=== PATIENT | female | born 1970 | race Caucasian/White ===

== ENCOUNTER 2022-08-11 10:47 | Inpatient (IN) | payer MEDICAID ==
[~2022-08-11] VITALS: Ht 160 cm; Wt 100.9 kg
[2022-08-11] MEDS ORDERED: ACETAMINOPHEN 325MG TABLET PO STA (11:04)
[2022-08-11 12:05] LABS: HEMATOCRIT. 33.6 % (36.0-48.0); HEMOGLOBIN. 11.7 g/dL (12.0-16.0); MEAN CORPUSCULAR HEMOGLOBIN 34.8 pg (28.0-32.0); MEAN CORPUSCULAR VOLUME 100.1 fL (81.0-99.0); MEAN PLATELET VOLUME 8.4 fl (7.4-10.4); PLATELET 147 x1000/uL (130-400); RED BLOOD CELL COUNT 3.35 mill/uL (4.2-5.4); RED CELL DISTRIBUTION WIDTH 14.5 % (11.6-14.6)
[2022-08-11 12:13] LABS: CHLORIDE 94 mEq/L (98-107)
[2022-08-11 12:14] LABS: INR 1.3; PROTHROMBIN TIME 13.5 sec (9.6-11.0)
[2022-08-11] MEDS ORDERED: POTASSIUM CHLORIDE 20MEQ TABLET SR PO NR (12:30)
[2022-08-11] MEDS ORDERED: VANCOMYCIN 1G PREMIX 200 ML IV SCH (12:30)
[2022-08-11] MEDS ORDERED: SODIUM CHLORIDE 0.9% 1000ML BAG (SEPSIS BOLUS) IV ONE (12:30)
[2022-08-11] MEDS ORDERED: PIPERACILLIN/TAZOBACTAM 3.375GM/50ML PREMIX IV ONE (12:30)
[2022-08-11] MEDS ORDERED: PIPERACILLIN/TAZ 3.375G PREMIX 50 ML IV NR (12:45)
[2022-08-11] MEDS ORDERED: SODIUM CHLORIDE 0.9% 2,190 ML IV SCH (12:45)
[2022-08-11 13:35] LABS: PLATELET ESTIMATE NORMAL
[2022-08-11] MEDS ORDERED: MAGNESIUM/ALUMINUM HYDROXIDE/SIMETHICONE 30ML UDC PO PRN (16:00)
[2022-08-11] MEDS ORDERED: ONDANSETRON HCL 4MG/2ML INJ IV PRN (16:00)
[2022-08-11] MEDS ORDERED: DOCUSATE SODIUM 100MG CAPSULE PO PRN (16:00)
[2022-08-11] MEDS ORDERED: IPRATROPIUM/ALBUTEROL 0.5-3(2.5)MG/3ML NEB NEB PRN (16:00)
[2022-08-11] MEDS ORDERED: CLONIDINE 0.1MG TABLET PO PRN (16:00)
[2022-08-11] MEDS ORDERED: ACETAMINOPHEN 325MG TABLET PO PRN (16:00)
[2022-08-11] MEDS ORDERED: GUAIFENESIN 200MG/10ML SUGAR FREE UDC PO PRN (16:00)
[2022-08-11 16:03] LABS: CLARITY URINE CLEAR (CLEAR); COLOR URINE YELLOW (YELLOW); KETONES URINE 1+ (NEGATIVE); LEUKOCYTE ESTERASE URINE TRACE (NEGATIVE); NITRITE URINE NEGATIVE (NEGATIVE); OCCULT BLOOD URINE NEGATIVE (NEGATIVE); PH URINE 6.5 (4.5-8.0); PROTEIN URINE TRACE (NEGATIVE); SPECIFIC GRAVITY URINE 1.012 (1.005-1.030)
[2022-08-11] MEDS ORDERED: DEXTROSE 50% WATER 50ML SYRINGE IV PRN (16:30)
[2022-08-11] MEDS ORDERED: NALOXONE HCL 0.4MG/ML VIAL IV PRN (16:30)
[2022-08-11 16:34] LABS: *AMPHETAMINES SCREEN URINE PRESUMTIVE POSITIVE (NEGATIVE); *BARBITURATES SCREEN URINE NEGATIVE (NEGATIVE); *BENZODIAZEPINES SCREEN URINE NEGATIVE (NEGATIVE); *COCAINE SCREEN URINE NEGATIVE (NEGATIVE); CANNABINOID URINE SCREEN NEGATIVE (NEGATIVE); METHADONE URINE SCREEN NEGATIVE (NEGATIVE); OPIATES URINE SCREEN NEGATIVE (NEGATIVE); PHENCYCLIDINE URINE SCREEN NEGATIVE (NEGATIVE)
[2022-08-11 19:49] LABS: CREATINE KINASE 214 IU/L (26-192); CREATINE KINASE MB FRACTION < 1.0 ng/mL (0.5-3.6)
[2022-08-11] MEDS: IPRATROPIUM/ALBUTEROL 0.5-3(2.5)MG/3ML NEB NEB SCH (20:11)
[2022-08-11 20:47] VITALS: BP 113/70
[2022-08-11] MEDS ORDERED: ENOXAPARIN 40MG/0.4ML SYR SUBCUT SCH (21:00)
[2022-08-11] MEDS: INSULIN LISPRO 100 UNITS/ML SUBCUT SCH (21:00)
[2022-08-11] MEDS: BLOOD SUGAR DIAGNOSTIC STRIP TEST SCH (21:00)
[2022-08-11 22:00] VITALS: BP 113/70
[2022-08-11] MEDS: FAMOTIDINE 20MG/2ML VIAL IV SCH (22:46)
[2022-08-11] MEDS: PIPERACILLIN/TAZOBACTAM 3.375 G in DEXTROSE 5% WATER 50 ML IV SCH (22:46)
[2022-08-11] MEDS: ACETAMINOPHEN 325MG TABLET PO PRN (23:01)
[2022-08-12] VITALS: BP 122/65
[2022-08-12 01:31] LABS: CREATINE KINASE 183 IU/L (26-192); CREATINE KINASE MB FRACTION < 1.0 ng/mL (0.5-3.6)
[2022-08-12] MEDS: IPRATROPIUM/ALBUTEROL 0.5-3(2.5)MG/3ML NEB NEB SCH ×4 (02:10→20:26)
[2022-08-12] MEDS: VANCOMYCIN 1G PREMIX 200 ML IV SCH ×2 (02:55→14:00)
[2022-08-12 04:00] VITALS: BP 132/71
[2022-08-12 06:30] LABS: BASOPHILS % 0.3 % (0.0-2.0); EOSINOPHILS % 1.1 % (0.0-5.0); HEMATOCRIT. 31.7 % (36.0-48.0); MEAN CORPUSCULAR HEMOGLOBIN 35.4 pg (28.0-32.0); MEAN CORPUSCULAR VOLUME 101.5 fL (81.0-99.0); MEAN PLATELET VOLUME 8.5 fl (7.4-10.4); MONOCYTES % 11.7 % (2.0-8.0); NEUTROPHILS % 59.9 % (40.0-76.0); PLATELET 112 x1000/uL (130-400); RED BLOOD CELL COUNT 3.12 mill/uL (4.2-5.4); RED CELL DISTRIBUTION WIDTH 14.3 % (11.6-14.6)
[2022-08-12] MEDS: PIPERACILLIN/TAZOBACTAM 3.375 G in DEXTROSE 5% WATER 50 ML IV SCH ×3 (06:35→23:06)
[2022-08-12] MEDS: BLOOD SUGAR DIAGNOSTIC STRIP TEST SCH ×4 (06:40→21:19)
[2022-08-12] MEDS: INSULIN LISPRO 100 UNITS/ML SUBCUT SCH ×4 (06:40→21:34)
[2022-08-12 07:16] LABS: CREATINE KINASE 156 IU/L (26-192); CREATINE KINASE MB FRACTION < 1.0 ng/mL (0.5-3.6)
[2022-08-12 07:34] LABS: CHLORIDE 104 mEq/L (98-107)
[2022-08-12 07:55] LABS: HDL CHOLESTEROL 41 mg/dL (40-59); LDL CHOLESTEROL 93 mg/dL (5-100); T4 FREE 1.26 ng/dL (0.76-1.46)
[2022-08-12 08:00] VITALS: BP 161/99
[2022-08-12] MEDS ORDERED: POTASSIUM CHLORIDE 20MEQ TABLET SR PO NR (10:30)
[2022-08-12] MEDS: ACETAMINOPHEN 325MG TABLET PO PRN ×2 (10:55→17:12)
[2022-08-12] MEDS: FAMOTIDINE 20MG/2ML VIAL IV SCH ×2 (10:55→21:32)
[2022-08-12] MEDS: AMLODIPINE 5MG TABLET PO SCH (10:55)
[2022-08-12 12:00] VITALS: BP 159/77
[2022-08-12] MEDS ORDERED: IOHEXOL-350 100 ML BOTTLE ONE (12:02)
[2022-08-12] MEDS: SODIUM CHLORIDE 0.9% 1,000 ML IV SCH ×2 (14:02→21:35)
[2022-08-12] MEDS: KCL 20MEQ/100ML PREMIX 100 ML IV SCH ×2 (14:03→14:05)
[2022-08-12 16:00] VITALS: BP 149/47
[2022-08-12] MEDS: VANCOMYCIN 1,000 MG in DEXT 5% WATER 250 ML IV SCH (17:11)
[2022-08-12] MEDS ORDERED: ENOXAPARIN 30MG/0.3ML SYR SUBCUT SCH (18:00)
[2022-08-12] MEDS ORDERED: LORAZEPAM 2MG/ML CPJ IV PRN (18:15)
[2022-08-12 20:00] VITALS: BP 139/73
[2022-08-12] MEDS: HYDRALAZINE HCL 25MG TABLET PO SCH (21:33)
[2022-08-13] VITALS: BP 137/68
[2022-08-13] MEDS: HYDROCODONE/ACETAMINOPHEN 5/325MG TABLET PO PRN (00:12)
[2022-08-13] MEDS: IPRATROPIUM/ALBUTEROL 0.5-3(2.5)MG/3ML NEB NEB SCH ×4 (00:52→20:48)
[2022-08-13 04:00] VITALS: BP 137/69
[2022-08-13] MEDS: ACETAMINOPHEN 325MG TABLET PO PRN ×2 (04:15→16:38)
[2022-08-13] MEDS: VANCOMYCIN 1,000 MG in DEXT 5% WATER 250 ML IV SCH (06:00)
[2022-08-13] MEDS: BLOOD SUGAR DIAGNOSTIC STRIP TEST SCH ×4 (06:06→21:00)
[2022-08-13 07:06] LABS: HEMATOCRIT 33.7 % (36.0-48.0); HEMOGLOBIN 11.6 g/dL (12.0-16.0); MEAN CORPUSCULAR HEMOGLOBIN 34.9 pg (28.0-32.0); MEAN CORPUSCULAR VOLUME 101.5 fL (81.0-99.0); PLATELET 123 x1000/uL (130-400); RED BLOOD CELL COUNT 3.32 mill/uL (4.2-5.4); RED CELL DISTRIBUTION WIDTH 14.7 % (11.6-14.6)
[2022-08-13 07:08] LABS: CHLORIDE 106 mEq/L (98-107)
[2022-08-13 07:16] LABS: PHOSPHORUS 2.9 mg/dL (2.5-4.9)
[2022-08-13] MEDS: INSULIN LISPRO 100 UNITS/ML SUBCUT SCH ×4 (07:20→21:00)
[2022-08-13] MEDS: SODIUM CHLORIDE 0.9% 1,000 ML IV SCH ×2 (07:30→16:39)
[2022-08-13] MEDS: FAMOTIDINE 20MG/2ML VIAL IV SCH ×2 (08:47→22:53)
[2022-08-13] MEDS: AMLODIPINE 5MG TABLET PO SCH (08:47)
[2022-08-13] MEDS: PIPERACILLIN/TAZOBACTAM 3.375 G in DEXTROSE 5% WATER 50 ML IV SCH ×3 (08:47→22:53)
[2022-08-13] MEDS: HYDRALAZINE HCL 25MG TABLET PO SCH ×2 (08:48→21:00)
[2022-08-13] MEDS ORDERED: POTASSIUM CHLORIDE 20MEQ TABLET SR PO NR (09:15)
[2022-08-13] MEDS ORDERED: KCL 20MEQ/100ML PREMIX 100 ML IV SCH (10:00)
[2022-08-13] MEDS ORDERED: IOHEXOL-300 100 ML BOTTLE ONE (11:24)
[2022-08-13] MEDS: POTASSIUM CHLORIDE 20MEQ/PACKET PO SCH ×2 (13:21→16:39)
[2022-08-13] MEDS: NYSTATIN POWDER 15GM TOP SCH ×2 (13:34→16:38)
[2022-08-13] MEDS ORDERED: MAGNESIUM 4 G PREMIX 100 ML IV NR (15:30)
[2022-08-13] MEDS ORDERED: VANCOMYCIN 1G PREMIX 200 ML IV SCH (18:00)
[2022-08-13 20:00] VITALS: BP 128/86
[2022-08-13] MEDS: CARVEDILOL 3.125 MG TABLET PO SCH (21:00)
[2022-08-13 21:38] LABS: TOTAL IRON BINDING CAPACITY 271 ug/dL (250-450)
[2022-08-13 22:21] LABS: FERRITIN 190 ng/mL (10-291)
[2022-08-13 22:33] LABS: HEPATITIS B SURFACE ANTIGEN NEGATIVE
[2022-08-13 22:35] LABS: VITAMIN B12 SERUM 870 pg/mL (211-911)
[2022-08-14] VITALS: BP 132/84
[2022-08-14] MEDS: IPRATROPIUM/ALBUTEROL 0.5-3(2.5)MG/3ML NEB NEB SCH ×4 (02:13→20:56)
[2022-08-14] MEDS: SODIUM CHLORIDE 0.9% 1,000 ML IV SCH ×3 (02:37→23:30)
[2022-08-14] MEDS: ACETAMINOPHEN 325MG TABLET PO PRN ×3 (02:38→19:56)
[2022-08-14 04:00] VITALS: BP 126/82
[2022-08-14] MEDS: PIPERACILLIN/TAZOBACTAM 3.375 G in DEXTROSE 5% WATER 50 ML IV SCH ×3 (05:21→21:44)
[2022-08-14] MEDS: BLOOD SUGAR DIAGNOSTIC STRIP TEST SCH ×4 (06:07→21:45)
[2022-08-14] MEDS: INSULIN LISPRO 100 UNITS/ML SUBCUT SCH ×4 (07:20→21:00)
[2022-08-14 08:00] VITALS: BP 148/88
[2022-08-14 08:43] LABS: EOSINOPHILS % 5.8 % (0.0-5.0); HEMATOCRIT. 34.9 % (36.0-48.0); HEMOGLOBIN. 12.1 g/dL (12.0-16.0); LYMPHOCYTES % 33.3 % (20.0-50.0); MEAN CORPUSCULAR HEMOGLOBIN 35.6 pg (28.0-32.0); MONOCYTES % 13.7 % (2.0-8.0); NEUTROPHILS % 46.2 % (40.0-76.0); RED BLOOD CELL COUNT 3.39 mill/uL (4.2-5.4)
[2022-08-14] MEDS ORDERED: LOSARTAN POTASSIUM 50 MG TABLET PO SCH (09:00)
[2022-08-14 09:10] LABS: CHLORIDE 106 mEq/L (98-107)
[2022-08-14] MEDS: CARVEDILOL 3.125 MG TABLET PO SCH ×2 (09:52→21:45)
[2022-08-14] MEDS: NYSTATIN POWDER 15GM TOP SCH ×3 (09:53→17:00)
[2022-08-14] MEDS: FAMOTIDINE 20MG TABLET PO SCH ×2 (09:53→21:45)
[2022-08-14] MEDS ORDERED: KETOROLAC 15MG/ML VIAL IV PRN (10:00)
[2022-08-14 12:00] VITALS: BP 127/74
[2022-08-14 12:11] LABS: MEAN PLATELET VOLUME 9.7 fl (7.4-10.4); PLATELET 142 x1000/uL (130-400)
[2022-08-14] MEDS ORDERED: AMLO5TAB88 PO (12:34)
[2022-08-14] MEDS ORDERED: COR3 PO (12:34)
[2022-08-14] MEDS ORDERED: LOSA50TA3 PO (12:34)
[2022-08-14] MEDS ORDERED: TOPUD PO (12:34)
[2022-08-14 16:00] VITALS: BP 150/91
[2022-08-14 20:00] VITALS: BP 133/72
[2022-08-14] MEDS ORDERED: VITAMINS A AND D OINT TUBE TOP PRN (21:00)
[2022-08-14] MEDS: AMLODIPINE 5MG TABLET PO SCH (21:45)
[2022-08-15] VITALS (8 sets, daily range): BP systolic 110–148; BP diastolic 59–84
[2022-08-15] MEDS: IPRATROPIUM/ALBUTEROL 0.5-3(2.5)MG/3ML NEB NEB SCH ×4 (01:39→20:06)
[2022-08-15] MEDS: PIPERACILLIN/TAZOBACTAM 3.375 G in DEXTROSE 5% WATER 50 ML IV SCH ×3 (06:32→22:12)
[2022-08-15] MEDS: BLOOD SUGAR DIAGNOSTIC STRIP TEST SCH ×4 (06:55→21:02)
[2022-08-15] MEDS: INSULIN LISPRO 100 UNITS/ML SUBCUT SCH ×4 (07:20→21:09)
[2022-08-15 07:25] LABS: EOSINOPHILS % 6.7 % (0.0-5.0); HEMATOCRIT. 33.7 % (36.0-48.0); HEMOGLOBIN. 11.7 g/dL (12.0-16.0); LYMPHOCYTES % 41.6 % (20.0-50.0); MEAN CORPUSCULAR VOLUME 101.3 fL (81.0-99.0); MEAN PLATELET VOLUME 8.7 fl (7.4-10.4); MONOCYTES % 12.9 % (2.0-8.0); NEUTROPHILS % 37.8 % (40.0-76.0); PLATELET 139 x1000/uL (130-400); RED BLOOD CELL COUNT 3.33 mill/uL (4.2-5.4); RED CELL DISTRIBUTION WIDTH 14.6 % (11.6-14.6)
[2022-08-15 07:28] LABS: CHLORIDE 108 mEq/L (98-107)
[2022-08-15] MEDS: LOSARTAN POTASSIUM 50 MG TABLET PO SCH (08:52)
[2022-08-15] MEDS: FAMOTIDINE 20MG TABLET PO SCH ×2 (08:52→21:02)
[2022-08-15] MEDS: NYSTATIN POWDER 15GM TOP SCH ×3 (09:00→17:00)
[2022-08-15] MEDS: CARVEDILOL 3.125 MG TABLET PO SCH ×2 (09:13→21:01)
[2022-08-15] MEDS: POTASSIUM CHLORIDE 20MEQ TABLET SR PO SCH ×2 (09:23→17:00)
[2022-08-15] MEDS: HYDROCODONE/ACETAMINOPHEN 5/325MG TABLET PO PRN ×2 (09:24→18:49)
[2022-08-15] MEDS: SODIUM CHLORIDE 0.9% 1,000 ML IV SCH ×2 (09:30→22:12)
[2022-08-15] MEDS: ACETAMINOPHEN 325MG TABLET PO PRN (13:13)
[2022-08-15] MEDS: AMLODIPINE 5MG TABLET PO SCH (22:14)
[2022-08-16] VITALS: BP 109/56
[2022-08-16] MEDS: IPRATROPIUM/ALBUTEROL 0.5-3(2.5)MG/3ML NEB NEB SCH ×2 (01:34→08:50)
[2022-08-16 05:22] VITALS: BP 123/70
[2022-08-16] MEDS: PIPERACILLIN/TAZOBACTAM 3.375 G in DEXTROSE 5% WATER 50 ML IV SCH (05:24)
[2022-08-16] MEDS: BLOOD SUGAR DIAGNOSTIC STRIP TEST SCH (06:12)
[2022-08-16 06:47] LABS: EOSINOPHILS % 7.3 % (0.0-5.0); HEMATOCRIT. 32.1 % (36.0-48.0); HEMOGLOBIN. 11.1 g/dL (12.0-16.0); LYMPHOCYTES % 43.8 % (20.0-50.0); MEAN CORPUSCULAR HEMOGLOBIN 35.3 pg (28.0-32.0); MEAN CORPUSCULAR VOLUME 101.8 fL (81.0-99.0); MEAN PLATELET VOLUME 8.8 fl (7.4-10.4); MONOCYTES % 13.1 % (2.0-8.0); NEUTROPHILS % 34.8 % (40.0-76.0); PLATELET 131 x1000/uL (130-400); RED BLOOD CELL COUNT 3.15 mill/uL (4.2-5.4); RED CELL DISTRIBUTION WIDTH 14.8 % (11.6-14.6)
[2022-08-16] MEDS: INSULIN LISPRO 100 UNITS/ML SUBCUT SCH (06:50)
[2022-08-16 08:00] VITALS: BP 135/85
[2022-08-16 08:13] LABS: CHLORIDE 109 mEq/L (98-107)
[2022-08-16] MEDS: FAMOTIDINE 20MG TABLET PO SCH (08:37)
[2022-08-16] MEDS: CARVEDILOL 3.125 MG TABLET PO SCH (08:39)
[2022-08-16] MEDS: LOSARTAN POTASSIUM 50 MG TABLET PO SCH (08:39)
[2022-08-16 08:40] VITALS: BP 135/85
[2022-08-16] MEDS: HYDROCODONE/ACETAMINOPHEN 5/325MG TABLET PO PRN (08:40)
== END 2022-08-16 10:00 | disposition home or self-care (01) | DRG 720 ==
LOC: ER 10:47 → 3WST 14:11 → EDBEDREQ 14:17 → EDBEDREQTM 14:17 → SUPCPDRO 16:35
PROVIDERS: ADMIT Internal Medicine; ATTEND Internal Medicine
DX: A41.89 Other specified sepsis (principal); I67.1 Cerebral aneurysm, nonruptured; E87.20 Acidosis, unspecified; E44.0 Moderate protein-calorie malnutrition; E11.40 Type 2 diabetes mellitus with diabetic neuropathy, unspecified; E87.1 Hypo-osmolality and hyponatremia; D53.9 Nutritional anemia, unspecified; R65.20 Severe sepsis without septic shock; B97.89 Other viral agents as the cause of diseases classified elsewhere; E11.65 Type 2 diabetes mellitus with hyperglycemia; K42.9 Umbilical hernia without obstruction or gangrene; Z20.822 Contact with and (suspected) exposure to COVID-19; E87.6 Hypokalemia; R16.1 Splenomegaly, not elsewhere classified; K70.30 Alcoholic cirrhosis of liver without ascites; E66.9 Obesity, unspecified; F15.10 Other stimulant abuse, uncomplicated; L85.3 Xerosis cutis; I10 Essential (primary) hypertension; Z59.01 Sheltered homelessness; Z68.39 Body mass index [BMI] 39.0-39.9, adult; Z79.899 Other long term (current) drug therapy
CPT/HCPCS: 36415; 70496; 71045; 73130; 74177; 76700; 80048; 80053; 80061; 80076; 80202; 80305; 81003; 82248; 82550; 82553; 82607; 82728; 82746; 82962; 83036; 83540; 83550; 83605; 83735; 84100; 84145; 84439; 84443; 84484; 85025; 85027; 85044; 86705; 86709; 86803; 87340; 87426; 87804; 93005; 93970; 94640; 97162; 97166; 97535; 99291; C9803; J1650; J1815; J2060; J2543; J3370; J3475; J3480; J3490; J7030; J7060; Q9967

== ENCOUNTER 2023-03-04 18:35 | Emergency (ER) | payer MEDICAID ==
[~2023-03-04] VITALS: Ht 160 cm; Wt 82.0 kg
[~2023-03-04 18:35] MED LIST: AMLO5TAB88 PO; COR3 PO; LOSA-413 PO; TOPUD PO
[2023-03-04 18:46] VITALS: BP 162/98; PULSE 88; RESP 18; TEMP 98.7; O2SAT 100
[2023-03-04] MEDS ORDERED: METHOCARBAMOL 500MG TABLET PO ONE (20:00)
[2023-03-04] MEDS ORDERED: ACETAMINOPHEN 325MG TABLET PO ONE (20:00)
[2023-03-04] MEDS ORDERED: IBUPROFEN 600MG TABLET PO ONE (20:00)
[2023-03-04] MEDS ORDERED: IBUP-2028 MT (21:43)
[2023-03-06] MEDS ORDERED: NAPR-681 PO (00:06)
[2023-03-06] MEDS ORDERED: NITR100C MT (00:06)
[2023-03-06] MEDS ORDERED: LISI-186 MT (00:06)
[2023-03-06] MEDS ORDERED: METF-414 PO (00:06)
[2023-03-06] MEDS ORDERED: POTA10CA43 PO (00:07)
== END 2023-03-04 22:16 | disposition home or self-care (01) ==
LOC: ER 18:35
DX: M79.651 Pain in right thigh (principal); E11.9 Type 2 diabetes mellitus without complications; I10 Essential (primary) hypertension; Z98.890 Other specified postprocedural states; W18.39XA Other fall on same level, initial encounter; Y93.89 Activity, other specified; Y92.89 Other specified places as the place of occurrence of the external cause; Y99.8 Other external cause status
CPT/HCPCS: 73502; 73552; 99284

== ENCOUNTER 2024-01-16 22:34 | Inpatient (IN) | payer MEDICAID ==
[~2024-01-16] VITALS: Ht 154.9 cm; Wt 76.7 kg
[~2024-01-16 22:34] MED LIST changes: +ERGO1250 PO; +FAMO20TA8 PO; +GABA-290 PO; +IBUP-2028 MT; -LOSA-413 PO; +LOSA50TA41 PO; +METF-414 PO; +NAPR-681 PO; +NITR100C MT; +POTA10CA83 PO; +SERT25TA74 PO
[2024-01-16 22:43] VITALS: O2SAT 98
[2024-01-16] MEDS ORDERED: ONDANSETRON 4MG ODT PO ONE (23:15)
[2024-01-16] MEDS ORDERED: MORPHINE SULFATE 4 MG/ML INJ (FOR IV/IM USE) IM ONE (23:15)
[2024-01-16 23:23] LABS: BASOPHILS % 0.2 % (0.0-2.0); EOSINOPHILS % 0.3 % (0.0-5.0); HEMATOCRIT. 24.2 % (36.0-48.0); HEMOGLOBIN. 8.3 g/dL (12.0-16.0); LYMPHOCYTES % 8.4 % (20.0-50.0); MEAN CORPUSCULAR HEMOGLOBIN 34.3 pg (28.0-32.0); MEAN CORPUSCULAR HGB CONC 34.5 g/dL (31.0-37.0); MEAN CORPUSCULAR VOLUME 99.4 fL (81.0-99.0); MEAN PLATELET VOLUME 6.9 fl (7.4-10.4); MONOCYTES % 6.1 % (2.0-8.0); PLATELET 232 x1000/uL (130-400); RED BLOOD CELL COUNT 2.43 mill/uL (4.2-5.4); RED CELL DISTRIBUTION WIDTH 13.9 % (11.6-14.6); WHITE BLOOD COUNT 13.4 x1000/uL (4.5-11.0)
[2024-01-16 23:32] LABS: CHLORIDE 104 mEq/L (98-107); POTASSIUM 3.6 mEq/L (3.5-5.1); SODIUM 136 mEq/L (136-145)
[2024-01-16 23:33] LABS: CARBON DIOXIDE 23 mEq/L (21-32)
[2024-01-16 23:34] LABS: CALCIUM 8.3 mg/dL (8.7-10.4)
[2024-01-16 23:38] LABS: CREATININE 1.3 mg/dL (0.6-1.0); GLUCOSE 184 mg/dL (70-105)
[2024-01-16 23:39] LABS: UREA NITROGEN BLOOD 31 mg/dL (9-23)
[2024-01-16 23:41] LABS: PHOSPHORUS 3.7 mg/dL (2.5-4.9)
[2024-01-16 23:44] LABS: CREATINE KINASE < 15 IU/L (34-145); ETHANOL BLOOD < 10 mg/dL (<10)
[2024-01-17] MEDS ORDERED: SODIUM CHLORIDE 0.9% 500 ML IV NR (01:00)
[2024-01-17] MEDS: VANCOMYCIN 1000MG/250ML 250 ML IV SCH (03:00)
[2024-01-17] MEDS: SODIUM CHLORIDE 0.9% 1000ML BAG (SEPSIS BOLUS) IV ONE (03:00)
[2024-01-17 03:29] LABS: CLARITY URINE CLEAR (CLEAR); COLOR URINE ORANGE (YELLOW); GLUCOSE URINE TRACE (NEGATIVE); KETONES URINE NEGATIVE (NEGATIVE); LEUKOCYTE ESTERASE URINE TRACE (NEGATIVE); NITRITE URINE NEGATIVE (NEGATIVE); OCCULT BLOOD URINE 3+ (NEGATIVE); PH URINE 6.5 (4.5-8.0); PROTEIN URINE 2+ (NEGATIVE); SPECIFIC GRAVITY URINE 1.011 (1.005-1.030)
[2024-01-17 03:45] LABS: *AMPHETAMINES SCREEN URINE NEGATIVE (NEGATIVE); *BARBITURATES SCREEN URINE NEGATIVE (NEGATIVE); *BENZODIAZEPINES SCREEN URINE NEGATIVE (NEGATIVE); *COCAINE SCREEN URINE NEGATIVE (NEGATIVE); CANNABINOID URINE SCREEN NEGATIVE (NEGATIVE); ECSTASY MDMA SCREEN URINE NEGATIVE (NEGATIVE); METHADONE URINE SCREEN NEGATIVE (NEGATIVE); OPIATES URINE SCREEN NEGATIVE (NEGATIVE); PHENCYCLIDINE URINE SCREEN NEGATIVE (NEGATIVE)
[2024-01-17] MEDS: MAGNESIUM 2 G PREMIX 50 ML IV NR (04:05)
[2024-01-17] MEDS: MORPHINE SULFATE 4 MG/ML INJ (FOR IV/IM USE) IM NR (04:07)
[2024-01-17] MEDS: ONDANSETRON 4MG ODT PO NR (04:07)
[2024-01-17] MEDS: PIPERACILLIN/TAZO 3.375G/50ML 50 ML IV SCH ×2 (06:33→14:45)
[2024-01-17 06:42] LABS: SQUAMOUS EPITHELIAL CELL URINE FEW /lpf (RARE/1+)
[2024-01-17 06:44] LABS: RBC URINE TNTC /hpf (0-2)
[2024-01-17 06:45] LABS: BACTERIA URINE NONE SEEN
[2024-01-17] MEDS ORDERED: ONDANSETRON HCL 4MG/2ML INJ IV PRN (07:30)
[2024-01-17] MEDS ORDERED: SODIUM CHLORIDE 0.9% 1,000 ML IV SCH (07:30)
[2024-01-17] MEDS ORDERED: DEXTROSE 50% WATER 50ML SYRINGE IV PRN (07:30)
[2024-01-17] MEDS ORDERED: IPRATROPIUM/ALBUTEROL 0.5-3(2.5)MG/3ML NEB HHN PRN (07:30)
[2024-01-17] MEDS ORDERED: ENOXAPARIN 40MG/0.4ML SYR SUBCUT SCH (07:30)
[2024-01-17] MEDS: SODIUM CHLORIDE 0.9% 1,000 ML IV SCH (07:45)
[2024-01-17] MEDS ORDERED: VANCOMYCIN 500MG PREMIX 100 ML IV SCH (08:00)
[2024-01-17] MEDS: AMLODIPINE 5MG TABLET PO SCH (08:04)
[2024-01-17] MEDS: ACETAMINOPHEN 325MG TABLET PO PRN (08:12)
[2024-01-17 08:14] LABS: CHLORIDE 107 mEq/L (98-107); POTASSIUM 3.6 mEq/L (3.5-5.1); SODIUM 136 mEq/L (136-145)
[2024-01-17 08:15] LABS: CALCIUM 8.1 mg/dL (8.7-10.4); CARBON DIOXIDE 23 mEq/L (21-32)
[2024-01-17 08:20] LABS: CREATININE 1.1 mg/dL (0.6-1.0); GLUCOSE 140 mg/dL (70-105); IRON 17 ug/dL (50-170); TRIGLYCERIDE 93 mg/dL (0-150); UREA NITROGEN BLOOD 25 mg/dL (9-23)
[2024-01-17 08:21] LABS: INR 1.2; LDL CHOLESTEROL 70 mg/dL (5-100)
[2024-01-17 08:22] LABS: CHOLESTEROL 97 mg/dL (<200); HDL CHOLESTEROL < 20 mg/dL (>65)
[2024-01-17 08:23] LABS: TOTAL IRON BINDING CAPACITY 280 ug/dl (250-425)
[2024-01-17 08:25] LABS: FERRITIN 624 ng/mL (10-291); T4 FREE 1.03 ng/dL (0.89-1.76); THYROID STIMULATING HORMONE 3.17 uIU/mL (0.55-4.78)
[2024-01-17 08:26] LABS: FOLIC ACID (FOLATE) SERUM > 20.00 ng/mL (>5.38); VITAMIN B12 SERUM 299 pg/mL (211-911)
[2024-01-17] MEDS: BLOOD SUGAR DIAGNOSTIC STRIP TEST SCH (08:44)
[2024-01-17 09:24] LABS: CREATINE KINASE < 15 IU/L (34-145)
[2024-01-17 12:00] VITALS: BP 123/67; PULSE 68; RESP 13; TEMP 97.5
[2024-01-17] MEDS: INSULIN LISPRO 100 UNITS/ML SUBCUT SCH (13:00)
[2024-01-17] MEDS: PANTOPRAZOLE 40MG DR TABLET PO SCH (13:30)
[2024-01-17 14:00] VITALS: BP 137/73; PULSE 71; RESP 10
[2024-01-17 16:00] VITALS: BP 141/72; PULSE 74; RESP 15; TEMP 98.1
[2024-01-17 18:00] VITALS: BP 118/69; PULSE 72; RESP 11
[2024-01-17 20:00] VITALS: PULSE 69; RESP 14; TEMP 98.2
[2024-01-17 22:00] VITALS: BP 135/78; PULSE 71; RESP 10
[2024-01-18] VITALS (26 sets, daily range): BP systolic 73–134; BP diastolic 41–73; PULSE 62–79; RESP 8–21; TEMP 93.9–98.3
[2024-01-18] MEDS: VANCOMYCIN 1G PREMIX 200 ML IV SCH (05:23)
[2024-01-18] MEDS ORDERED: THROMBIN (BOVINE) 5000 UNITS/VIAL TOP ONE (05:51)
[2024-01-18] MEDS ORDERED: LIDOCAINE HCL/EPINEPHRINE 1%-EPI 1:100,000 20 ML VIAL ONE (05:51)
[2024-01-18] MEDS ORDERED: GENTAMICIN SULF 40MG/ML 2ML VIAL ONE (05:51)
[2024-01-18 09:43] LABS: BASOPHILS % 0.3 % (0.0-2.0); EOSINOPHILS % 0.9 % (0.0-5.0); HEMATOCRIT. 22.9 % (36.0-48.0); HEMOGLOBIN. 7.8 g/dL (12.0-16.0); LYMPHOCYTES % 9.7 % (20.0-50.0); MEAN CORPUSCULAR HEMOGLOBIN 33.6 pg (28.0-32.0); MEAN CORPUSCULAR HGB CONC 34.2 g/dL (31.0-37.0); MEAN CORPUSCULAR VOLUME 98.3 fL (81.0-99.0); MEAN PLATELET VOLUME 7.1 fl (7.4-10.4); MONOCYTES % 4.9 % (2.0-8.0); NEUTROPHILS % 84.2 % (40.0-76.0); PLATELET 210 x1000/uL (130-400); RED BLOOD CELL COUNT 2.33 mill/uL (4.2-5.4); RED CELL DISTRIBUTION WIDTH 13.5 % (11.6-14.6)
[2024-01-18 09:45] LABS: POTASSIUM 3.7 mEq/L (3.5-5.1)
[2024-01-18 09:46] LABS: CALCIUM 8.1 mg/dL (8.7-10.4)
[2024-01-18 09:51] LABS: CREATININE 1.1 mg/dL (0.6-1.0)
[2024-01-18 12:43] LABS: CREATINE KINASE < 15 IU/L (34-145)
[2024-01-18] MEDS ORDERED: ONDANSETRON HCL 4MG/2ML INJ ONE (15:46)
[2024-01-18] MEDS ORDERED: DEXAMETHASONE 4MG/ML 1ML VIAL ONE (15:46)
[2024-01-18] MEDS ORDERED: ROCURONIUM BROMIDE 10MG/ML VIAL 5ML IV ONE (15:46)
[2024-01-18] MEDS ORDERED: NEOSTIGMINE METHYLSULFATE 1MG/ML 10 ML VIAL ONE (15:46)
[2024-01-18] MEDS ORDERED: MIDAZOLAM HCL 2 MG/2 ML VIAL ONE (15:46)
[2024-01-18] MEDS ORDERED: PROPOFOL 200MG/20ML VIAL IV ONE ×2 (15:46→16:22)
[2024-01-18] MEDS ORDERED: FENTANYL CITRATE/PF 50MCG/ML 2ML VIAL ONE (15:46)
[2024-01-18] MEDS ORDERED: ETOMIDATE 2MG/ML 10ML VIAL IV ONE (15:46)
[2024-01-18] MEDS ORDERED: NICARDIPINE 100 MG in SODIUM CHLORIDE 0.9% 60 ML IV PRN (16:00)
[2024-01-18] MEDS ORDERED: NALOXONE HCL 0.4MG/ML VIAL IV PRN (17:00)
[2024-01-18] MEDS ORDERED: HYDROMORPHONE HCL/PF 2MG/ML INJ ONE (18:01)
[2024-01-18] MEDS ORDERED: LABETALOL 5MG/ML 20ML VIAL IV ONE (18:04)
[2024-01-18] MEDS ORDERED: HYDRALAZINE 20MG/ML VIAL ONE (18:04)
[2024-01-18] MEDS: MORPHINE SULFATE 4 MG/ML INJ (FOR IV/IM USE) IV PRN (19:40)
[2024-01-18] MEDS: DEXT 5%/LACTATED RINGERS 1,000 ML IV SCH (19:49)
[2024-01-18 20:50] LABS: HEMATOCRIT 23.6 % (36.0-48.0)
[2024-01-18] MEDS: HYDROCODONE/ACETAMINOPHEN 7.5/325MG TABLET PO PRN (21:35)
[2024-01-18 21:56] LABS: CLARITY URINE CLOUDY (CLEAR); COLOR URINE YELLOW (YELLOW); GLUCOSE URINE NEGATIVE (NEGATIVE); KETONES URINE NEGATIVE (NEGATIVE); LEUKOCYTE ESTERASE URINE 2+ (NEGATIVE); NITRITE URINE NEGATIVE (NEGATIVE); OCCULT BLOOD URINE 3+ (NEGATIVE); PH URINE 5.5 (4.5-8.0); PROTEIN URINE 1+ (NEGATIVE); SPECIFIC GRAVITY URINE 1.016 (1.005-1.030)
[2024-01-18] MEDS: MIDODRINE HCL 5MG TABLET PO SCH (21:56)
[2024-01-18 22:13] LABS: BACTERIA URINE NONE SEEN; RBC URINE 15-25 /hpf (0-2); SQUAMOUS EPITHELIAL CELL URINE 1+ /lpf (RARE/1+)
[2024-01-19] VITALS (92 sets, daily range): BP systolic 79–127; BP diastolic 41–94; PULSE 62–85; RESP 8–21; TEMP 96.8–98.2
[2024-01-19 04:38] LABS: MEAN CORPUSCULAR HGB CONC 33.9 g/dL (31.0-37.0); MEAN CORPUSCULAR VOLUME 97.4 fL (81.0-99.0); MEAN PLATELET VOLUME 7.3 fl (7.4-10.4); PLATELET 192 x1000/uL (130-400); RED BLOOD CELL COUNT 2.01 mill/uL (4.2-5.4); RED CELL DISTRIBUTION WIDTH 14.9 % (11.6-14.6); WHITE BLOOD COUNT 11.5 x1000/uL (4.5-11.0)
[2024-01-19 04:48] LABS: POTASSIUM 4.1 mEq/L (3.5-5.1)
[2024-01-19 04:52] LABS: DIFFERENTIAL COMMENT 1
[2024-01-19 04:55] LABS: HEMATOCRIT. 19.6 % (36.0-48.0); HEMOGLOBIN. 6.6 g/dL (12.0-16.0)
[2024-01-19 05:00] LABS: CREATININE 1.6 mg/dL (0.6-1.0)
[2024-01-19 05:37] LABS: GIANT PLATELETS FEW; PLATELET ESTIMATE NORMAL
[2024-01-19 09:49] LABS: HEMATOCRIT 21.2 % (36.0-48.0); HEMOGLOBIN 7.2 g/dL (12.0-16.0)
[2024-01-19 18:26] LABS: HEMATOCRIT 23.3 % (36.0-48.0)
[2024-01-19 18:49] LABS: PHOSPHORUS 5.2 mg/dL (2.5-4.9)
[2024-01-19] MEDS: MAGNESIUM 2 G PREMIX 50 ML IV SCH (21:07)
[2024-01-19 21:33] LABS: HEMATOCRIT 22.5 % (36.0-48.0); HEMOGLOBIN 7.7 g/dL (12.0-16.0)
[2024-01-19] MEDS ORDERED: INSULIN GLARGINE 100 UNITS/ML SUBCUT SCH (22:00)
[2024-01-20] VITALS (30 sets, daily range): BP systolic 104–127; BP diastolic 52–90; PULSE 62–84; RESP 9–21; TEMP 97.2–98.4
[2024-01-20 05:45] LABS: BASOPHILS % 0.1 % (0.0-2.0); EOSINOPHILS % 0.1 % (0.0-5.0); HEMATOCRIT. 22.2 % (36.0-48.0); HEMOGLOBIN. 7.7 g/dL (12.0-16.0); LYMPHOCYTES % 7.7 % (20.0-50.0); MEAN CORPUSCULAR HEMOGLOBIN 32.7 pg (28.0-32.0); MEAN CORPUSCULAR HGB CONC 34.7 g/dL (31.0-37.0); MEAN CORPUSCULAR VOLUME 94.4 fL (81.0-99.0); MEAN PLATELET VOLUME 7.4 fl (7.4-10.4); MONOCYTES % 6.6 % (2.0-8.0); NEUTROPHILS % 85.5 % (40.0-76.0); PLATELET 193 x1000/uL (130-400); RED BLOOD CELL COUNT 2.35 mill/uL (4.2-5.4); RED CELL DISTRIBUTION WIDTH 15.6 % (11.6-14.6); WHITE BLOOD COUNT 11.8 x1000/uL (4.5-11.0)
[2024-01-20 05:46] LABS: CARBON DIOXIDE 21 mEq/L (21-32); CHLORIDE 104 mEq/L (98-107); POTASSIUM 4.1 mEq/L (3.5-5.1); SODIUM 132 mEq/L (136-145)
[2024-01-20 05:47] LABS: CALCIUM 7.9 mg/dL (8.7-10.4)
[2024-01-20 05:52] LABS: CREATININE 1.4 mg/dL (0.6-1.0); GLUCOSE 225 mg/dL (70-105); UREA NITROGEN BLOOD 23 mg/dL (9-23)
[2024-01-20 05:54] LABS: PHOSPHORUS 4.5 mg/dL (2.5-4.9)
[2024-01-20] MEDS: SODIUM CHLORIDE 0.9% 1,000 ML IV SCH (14:02)
[2024-01-20] MEDS: VANCOMYCIN 750MG PREMIX 150 ML IV SCH (14:07)
[2024-01-21 04:00] VITALS: BP 118/59; PULSE 73; RESP 19; TEMP 97.7
[2024-01-21 06:22] LABS: BASOPHILS % 0.2 % (0.0-2.0); EOSINOPHILS % 0.9 % (0.0-5.0); HEMATOCRIT. 24.4 % (36.0-48.0); HEMOGLOBIN. 8.5 g/dL (12.0-16.0); LYMPHOCYTES % 14.4 % (20.0-50.0); MEAN CORPUSCULAR HEMOGLOBIN 32.7 pg (28.0-32.0); MEAN CORPUSCULAR HGB CONC 34.7 g/dL (31.0-37.0); MEAN CORPUSCULAR VOLUME 94.1 fL (81.0-99.0); MEAN PLATELET VOLUME 7.3 fl (7.4-10.4); MONOCYTES % 9.1 % (2.0-8.0); NEUTROPHILS % 75.4 % (40.0-76.0); PLATELET 202 x1000/uL (130-400); WHITE BLOOD COUNT 8.4 x1000/uL (4.5-11.0)
[2024-01-21 06:23] LABS: POTASSIUM 3.9 mEq/L (3.5-5.1)
[2024-01-21 06:25] LABS: CALCIUM 8.4 mg/dL (8.7-10.4)
[2024-01-21 06:29] LABS: CREATININE 1.1 mg/dL (0.6-1.0)
[2024-01-21 08:00] VITALS: BP 143/81; PULSE 80; RESP 20; TEMP 98.8
[2024-01-21 10:06] LABS: ANTI-NUCLEAR ANTIBODIES DIRECT Positive (Negative)
[2024-01-21 12:00] VITALS: BP 180/60; PULSE 82; RESP 19; TEMP 100.2
[2024-01-21 15:06] LABS: ANTI-STREPTOLYSIN O 233.4 IU/mL (0.0-200.0); COMPLEMENT C4 16 mg/dL (12-38)
[2024-01-21 16:00] VITALS: BP 106/60; PULSE 81; RESP 19; TEMP 99.5
[2024-01-21 20:00] VITALS: BP 129/65; PULSE 83; RESP 19; TEMP 97.8
[2024-01-22] VITALS: BP 139/66; PULSE 88; RESP 20; TEMP 97.9
[2024-01-22 04:00] VITALS: BP 132/63; PULSE 83; RESP 18; TEMP 97.8
[2024-01-22 06:14] LABS: CHLORIDE 110 mEq/L (98-107); POTASSIUM 3.7 mEq/L (3.5-5.1); SODIUM 138 mEq/L (136-145)
[2024-01-22 06:15] LABS: CALCIUM 8.2 mg/dL (8.7-10.4); CARBON DIOXIDE 25 mEq/L (21-32)
[2024-01-22 06:20] LABS: CREATININE 0.9 mg/dL (0.6-1.0); GLUCOSE 95 mg/dL (70-105); UREA NITROGEN BLOOD 18 mg/dL (9-23)
[2024-01-22 06:22] LABS: BASOPHILS % 0.5 % (0.0-2.0); EOSINOPHILS % 0.9 % (0.0-5.0); HEMATOCRIT. 24.2 % (36.0-48.0); HEMOGLOBIN. 8.6 g/dL (12.0-16.0); LYMPHOCYTES % 17.8 % (20.0-50.0); MEAN CORPUSCULAR HEMOGLOBIN 33.6 pg (28.0-32.0); MEAN CORPUSCULAR HGB CONC 35.6 g/dL (31.0-37.0); MEAN CORPUSCULAR VOLUME 94.4 fL (81.0-99.0); MEAN PLATELET VOLUME 7.2 fl (7.4-10.4); MONOCYTES % 8.2 % (2.0-8.0); NEUTROPHILS % 72.6 % (40.0-76.0); PHOSPHORUS 4.1 mg/dL (2.5-4.9); PLATELET 180 x1000/uL (130-400); RED BLOOD CELL COUNT 2.57 mill/uL (4.2-5.4); RED CELL DISTRIBUTION WIDTH 15.2 % (11.6-14.6); WHITE BLOOD COUNT 8.1 x1000/uL (4.5-11.0)
[2024-01-22 08:00] VITALS: BP 151/78; PULSE 77; RESP 19; TEMP 98.1
[2024-01-22] MEDS: MAGNESIUM 4 G PREMIX 100 ML IV NR (09:00)
[2024-01-22 12:00] VITALS: BP 135/72; PULSE 74; RESP 18; TEMP 98.2
[2024-01-22] MEDS: VANCOMYCIN 500MG PREMIX 100 ML IV SCH (13:00)
[2024-01-22 16:00] VITALS: BP 136/74; PULSE 74; RESP 18; TEMP 98.1
[2024-01-22 20:00] VITALS: BP 131/62; PULSE 76; RESP 20; TEMP 98
[2024-01-23] VITALS: BP 131/67; PULSE 74; RESP 18; TEMP 97.5
[2024-01-23 04:00] VITALS: BP 134/68; PULSE 66; RESP 20; TEMP 97.5
[2024-01-23] MEDS: VANCOMYCIN 1.25GM PMX (XELLIA) 250 ML IV SCH (06:10)
[2024-01-23 08:00] VITALS: BP 133/64; RESP 18; TEMP 97.3
[2024-01-23] MEDS: CEFAZOLIN 2GM/100ML 100 ML IV SCH (10:54)
[2024-01-23 12:00] VITALS: BP 141/75; PULSE 71; RESP 18; TEMP 97.5
[2024-01-23 16:00] VITALS: BP 134/70; PULSE 69; RESP 19; TEMP 97.4
[2024-01-23 20:00] VITALS: BP 119/61; PULSE 73; RESP 18; TEMP 97.9
[2024-01-24] VITALS: BP 121/62; PULSE 82; RESP 18; TEMP 97.9
[2024-01-24 04:00] VITALS: BP 141/74; PULSE 74; RESP 18; TEMP 98.8
[2024-01-24 06:21] LABS: BASOPHILS % 0.5 % (0.0-2.0); EOSINOPHILS % 2.1 % (0.0-5.0); HEMATOCRIT. 23.7 % (36.0-48.0); HEMOGLOBIN. 8.2 g/dL (12.0-16.0); LYMPHOCYTES % 15.9 % (20.0-50.0); MEAN CORPUSCULAR HEMOGLOBIN 32.3 pg (28.0-32.0); MEAN CORPUSCULAR HGB CONC 34.7 g/dL (31.0-37.0); MEAN CORPUSCULAR VOLUME 93.2 fL (81.0-99.0); MEAN PLATELET VOLUME 7.2 fl (7.4-10.4); NEUTROPHILS % 74.5 % (40.0-76.0); PLATELET 207 x1000/uL (130-400); RED BLOOD CELL COUNT 2.54 mill/uL (4.2-5.4); RED CELL DISTRIBUTION WIDTH 14.5 % (11.6-14.6); WHITE BLOOD COUNT 9.1 x1000/uL (4.5-11.0)
[2024-01-24 06:26] LABS: CARBON DIOXIDE 23 mEq/L (21-32); CHLORIDE 110 mEq/L (98-107); POTASSIUM 3.4 mEq/L (3.5-5.1); SODIUM 139 mEq/L (136-145)
[2024-01-24 06:27] LABS: CALCIUM 8.2 mg/dL (8.7-10.4)
[2024-01-24 06:32] LABS: GLUCOSE 89 mg/dL (70-105); UREA NITROGEN BLOOD 16 mg/dL (9-23)
[2024-01-24 06:34] LABS: PHOSPHORUS 4.7 mg/dL (2.5-4.9)
[2024-01-24 08:00] VITALS: BP 138/67; PULSE 70; RESP 18; TEMP 98.1
[2024-01-24] MEDS: MAGNESIUM 4 G PREMIX 100 ML IV SCH (08:55)
[2024-01-24] MEDS: POTASSIUM CHLORIDE 20MEQ/PACKET PO NR (08:55)
[2024-01-24 12:00] VITALS: BP 137/68; PULSE 70; RESP 20; TEMP 98.6
[2024-01-24 12:47] LABS: CHLORIDE 108 mEq/L (98-107); POTASSIUM 3.9 mEq/L (3.5-5.1); SODIUM 138 mEq/L (136-145)
[2024-01-24 12:48] LABS: CALCIUM 8.2 mg/dL (8.7-10.4); CARBON DIOXIDE 24 mEq/L (21-32)
[2024-01-24 12:53] LABS: GLUCOSE 135 mg/dL (70-105); UREA NITROGEN BLOOD 13 mg/dL (9-23)
[2024-01-24 12:55] LABS: ALANINE AMINOTRANSFERASE < 7 IU/L (10-49); ALBUMIN 2.4 g/dL (3.2-4.8); ASPARTATE AMINOTRANSFERASE 17 IU/L (<34); BILIRUBIN TOTAL 0.5 mg/dL (0.1-1.0); PROTEIN TOTAL 6.3 g/dL (6.0-8.3)
[2024-01-24] MEDS: MORPHINE SULFATE 2 MG/ML INJ (NOT FOR IM USE) IV NR (13:54)
[2024-01-24 16:00] VITALS: BP 116/60; PULSE 68; RESP 19; TEMP 97.6
[2024-01-24 16:02] LABS: CLARITY URINE CLEAR (CLEAR); COLOR URINE YELLOW (YELLOW); GLUCOSE URINE NEGATIVE (NEGATIVE); KETONES URINE NEGATIVE (NEGATIVE); LEUKOCYTE ESTERASE URINE NEGATIVE (NEGATIVE); NITRITE URINE NEGATIVE (NEGATIVE); OCCULT BLOOD URINE 3+ (NEGATIVE); PH URINE 6.5 (4.5-8.0); PROTEIN URINE 1+ (NEGATIVE); SPECIFIC GRAVITY URINE 1.009 (1.005-1.030); UROBILINOGEN URINE 0.2 E.U./dL (0.2-1.0)
[2024-01-24 16:35] LABS: BACTERIA URINE 1+; RBC URINE 50-100 /hpf (0-2); SQUAMOUS EPITHELIAL CELL URINE FEW /lpf (RARE/1+); WBC URINE 0-2 /hpf (0-2)
[2024-01-24 17:11] LABS: ANTI-MYELOPEROXIDASE AB < 0.2 units (0.0-0.9); ANTI-PROTEINASE 3 ABS < 0.2 units (0.0-0.9)
[2024-01-24 20:00] VITALS: BP 142/72; PULSE 76; RESP 18; TEMP 100.6
[2024-01-25] VITALS: BP_SYST 115; BP_SYST 138; BP_DIAS 58; BP_DIAS 75; PULSE 73; PULSE 81; RESP 18; TEMP 100.6; TEMP 99.5
[2024-01-25 04:00] VITALS: BP 145/77; PULSE 66; RESP 18; TEMP 98.6
[2024-01-25 06:29] LABS: BASOPHILS % 0.4 % (0.0-2.0); EOSINOPHILS % 2.2 % (0.0-5.0); HEMATOCRIT. 23.5 % (36.0-48.0); HEMOGLOBIN. 8.3 g/dL (12.0-16.0); LYMPHOCYTES % 15.2 % (20.0-50.0); MEAN CORPUSCULAR HEMOGLOBIN 33.1 pg (28.0-32.0); MEAN CORPUSCULAR HGB CONC 35.5 g/dL (31.0-37.0); MEAN CORPUSCULAR VOLUME 93.2 fL (81.0-99.0); MEAN PLATELET VOLUME 7.3 fl (7.4-10.4); MONOCYTES % 6.2 % (2.0-8.0); PLATELET 213 x1000/uL (130-400); RED BLOOD CELL COUNT 2.52 mill/uL (4.2-5.4); RED CELL DISTRIBUTION WIDTH 14.9 % (11.6-14.6); WHITE BLOOD COUNT 8.9 x1000/uL (4.5-11.0)
[2024-01-25 06:37] LABS: PHOSPHORUS 3.8 mg/dL (2.5-4.9)
[2024-01-25 08:00] VITALS: BP 145/75; PULSE 70; RESP 18; TEMP 98.2
[2024-01-25 08:14] LABS: CALCIUM 8.4 mg/dL (8.7-10.4); CARBON DIOXIDE 22 mEq/L (21-32); CHLORIDE 111 mEq/L (98-107); POTASSIUM 3.5 mEq/L (3.5-5.1); SODIUM 137 mEq/L (136-145)
[2024-01-25 08:19] LABS: CREATININE 0.9 mg/dL (0.6-1.0); GLUCOSE 87 mg/dL (70-105)
[2024-01-25 08:20] LABS: UREA NITROGEN BLOOD 13 mg/dL (9-23)
[2024-01-25 12:00] VITALS: BP 143/66; PULSE 68; RESP 19; TEMP 97.7
[2024-01-25 13:11] LABS: ATYPICAL P-ANCA <1:20 titer (Neg:<1:20); CYTOPLASMIC C-ANCA 1:40 titer (Neg:<1:20); PERINUCLEAR P-ANCA <1:20 titer (Neg:<1:20)
[2024-01-25] MEDS: MORPHINE SULFATE 2 MG/ML INJ (NOT FOR IM USE) IV PRN (15:11)
[2024-01-25 16:00] VITALS: BP 134/71; PULSE 69; RESP 18; TEMP 97.7
[2024-01-25 20:00] VITALS: BP 136/60; PULSE 74; RESP 18; TEMP 97.9
[2024-01-26 04:00] VITALS: BP 136/75; PULSE 74; RESP 18; TEMP 98.1
[2024-01-26 07:02] LABS: BASOPHILS % 0.5 % (0.0-2.0); EOSINOPHILS % 2.9 % (0.0-5.0); HEMATOCRIT. 23.2 % (36.0-48.0); LYMPHOCYTES % 20.8 % (20.0-50.0); MEAN CORPUSCULAR HEMOGLOBIN 32.8 pg (28.0-32.0); MEAN CORPUSCULAR HGB CONC 34.4 g/dL (31.0-37.0); MEAN CORPUSCULAR VOLUME 95.4 fL (81.0-99.0); MEAN PLATELET VOLUME 7.4 fl (7.4-10.4); MONOCYTES % 7.5 % (2.0-8.0); NEUTROPHILS % 68.3 % (40.0-76.0); PLATELET 200 x1000/uL (130-400); RED BLOOD CELL COUNT 2.43 mill/uL (4.2-5.4); WHITE BLOOD COUNT 6.6 x1000/uL (4.5-11.0)
[2024-01-26 07:07] LABS: CHLORIDE 109 mEq/L (98-107); POTASSIUM 3.6 mEq/L (3.5-5.1); SODIUM 139 mEq/L (136-145)
[2024-01-26 07:08] LABS: CARBON DIOXIDE 23 mEq/L (21-32)
[2024-01-26 07:09] LABS: CALCIUM 8.1 mg/dL (8.7-10.4)
[2024-01-26 07:13] LABS: CREATININE 0.9 mg/dL (0.6-1.0); GLUCOSE 77 mg/dL (70-105)
[2024-01-26 07:14] LABS: UREA NITROGEN BLOOD 12 mg/dL (9-23)
[2024-01-26 08:00] VITALS: BP 167/71; PULSE 72; RESP 19; TEMP 98.1
[2024-01-26] MEDS: CLONIDINE 0.1MG TABLET PO PRN (08:35)
[2024-01-26 12:00] VITALS: BP 148/78; PULSE 69; RESP 18; TEMP 98.1
[2024-01-26 16:00] VITALS: BP 133/62; PULSE 65; RESP 19; TEMP 98.1
[2024-01-26 20:00] VITALS: BP 130/70; PULSE 70; RESP 20; TEMP 97.9
[2024-01-27 08:00] VITALS: BP 151/70; PULSE 74; RESP 19; TEMP 96.4
[2024-01-27] MEDS ORDERED: LIDOCAINE 2% 6ML GLYDO MM ONE (09:34)
[2024-01-27] MEDS ORDERED: TETRACAINE/BENZOCAINE/BUTAMBEN 20 GM SPRAY MM ONE (09:34)
[2024-01-27] MEDS ORDERED: FENTANYL CITRATE/PF 50MCG/ML 2ML VIAL ONE (10:23)
[2024-01-27] MEDS ORDERED: MIDAZOLAM HCL 5 MG/5 ML VIAL ONE (10:23)
[2024-01-27] MEDS: MORPHINE SULFATE 2 MG/ML INJ (NOT FOR IM USE) IV NR (13:30)
[2024-01-27 16:00] VITALS: BP 118/85; PULSE 76; RESP 20; TEMP 97.7
[2024-01-27 20:00] VITALS: BP 137/69; PULSE 80; RESP 20; TEMP 98.6
[2024-01-28] VITALS: BP 150/70; PULSE 88; RESP 20; TEMP 99.3
[2024-01-28] MEDS: TRAMADOL 50MG TABLET PO NR (00:22)
[2024-01-28 06:12] LABS: CHLORIDE 108 mEq/L (98-107); POTASSIUM 3.5 mEq/L (3.5-5.1); SODIUM 137 mEq/L (136-145)
[2024-01-28 06:13] LABS: CALCIUM 7.8 mg/dL (8.7-10.4); CARBON DIOXIDE 23 mEq/L (21-32)
[2024-01-28 06:18] LABS: CREATININE 0.9 mg/dL (0.6-1.0); GLUCOSE 98 mg/dL (70-105); UREA NITROGEN BLOOD 15 mg/dL (9-23)
[2024-01-28 06:19] LABS: BASOPHILS % 0.3 % (0.0-2.0); EOSINOPHILS % 1.6 % (0.0-5.0); HEMATOCRIT. 22.8 % (36.0-48.0); HEMOGLOBIN. 7.8 g/dL (12.0-16.0); LYMPHOCYTES % 18.2 % (20.0-50.0); MEAN CORPUSCULAR HEMOGLOBIN 32.2 pg (28.0-32.0); MEAN CORPUSCULAR HGB CONC 34.4 g/dL (31.0-37.0); MEAN CORPUSCULAR VOLUME 93.6 fL (81.0-99.0); MEAN PLATELET VOLUME 7.5 fl (7.4-10.4); MONOCYTES % 7.9 % (2.0-8.0); PLATELET 189 x1000/uL (130-400); RED BLOOD CELL COUNT 2.44 mill/uL (4.2-5.4); RED CELL DISTRIBUTION WIDTH 14.9 % (11.6-14.6); WHITE BLOOD COUNT 8.2 x1000/uL (4.5-11.0)
[2024-01-28 06:20] LABS: PHOSPHORUS 3.6 mg/dL (2.5-4.9)
[2024-01-28 08:00] VITALS: BP 146/60; PULSE 69; RESP 20; TEMP 98
[2024-01-28] MEDS: MAGNESIUM 4 G PREMIX 100 ML IV NR (09:37)
[2024-01-28] MEDS: TRAMADOL 50MG TABLET PO PRN (10:21)
[2024-01-28] MEDS ORDERED: NALOXONE HCL 0.4MG/ML VIAL IV PRN (10:30)
[2024-01-28 12:00] VITALS: BP 126/63; PULSE 68; RESP 20; TEMP 98.3
[2024-01-28 16:00] VITALS: BP 120/72; PULSE 72; RESP 19; TEMP 97.7
[2024-01-28 20:00] VITALS: BP 136/66; PULSE 81; RESP 18; TEMP 98.1
[2024-01-29] VITALS: BP 145/72; PULSE 80; RESP 18; TEMP 97.7
[2024-01-29 04:00] VITALS: BP 164/82; PULSE 79; RESP 18; TEMP 97.5
[2024-01-29 07:36] LABS: HEMATOCRIT 22.5 % (36.0-48.0); MEAN CORPUSCULAR HEMOGLOBIN 32.9 pg (28.0-32.0); MEAN CORPUSCULAR HGB CONC 35.6 g/dL (31.0-37.0); MEAN CORPUSCULAR VOLUME 92.4 fL (81.0-99.0); PLATELET 179 x1000/uL (130-400); RED BLOOD CELL COUNT 2.43 mill/uL (4.2-5.4); RED CELL DISTRIBUTION WIDTH 14.9 % (11.6-14.6); WHITE BLOOD COUNT 7.1 x1000/uL (4.5-11.0)
[2024-01-29 07:57] LABS: CARBON DIOXIDE 25 mEq/L (21-32); CHLORIDE 106 mEq/L (98-107); POTASSIUM 3.5 mEq/L (3.5-5.1); SODIUM 137 mEq/L (136-145)
[2024-01-29 07:58] LABS: CALCIUM 8.3 mg/dL (8.7-10.4)
[2024-01-29 08:00] VITALS: BP 157/70; PULSE 79; RESP 19; TEMP 98.8
[2024-01-29 08:03] LABS: CREATININE 0.8 mg/dL (0.6-1.0); GLUCOSE 92 mg/dL (70-105); UREA NITROGEN BLOOD 12 mg/dL (9-23)
[2024-01-29 08:05] LABS: PHOSPHORUS 3.4 mg/dL (2.5-4.9)
[2024-01-29] MEDS: LACTULOSE 20G/30ML UDC PO SCH (14:00)
[2024-01-29] MEDS: POTASSIUM CHLORIDE 20MEQ TABLET SR PO SCH (14:09)
[2024-01-29] MEDS: KETOROLAC 30MG/ML VIAL IM PRN (14:09)
[2024-01-29] MEDS: MAGNESIUM 4 G PREMIX 100 ML IV NR (14:19)
[2024-01-29 16:00] VITALS: BP 167/86; PULSE 83; RESP 20; TEMP 97.8
[2024-01-29 20:00] VITALS: BP 144/72; PULSE 78; RESP 18; TEMP 98.4
[2024-01-29] MEDS: PANTOPRAZOLE 40MG DR TABLET PO SCH (21:06)
[2024-01-30] VITALS: BP 158/81; PULSE 75; RESP 18; TEMP 98.1
[2024-01-30 04:00] VITALS: BP 158/94; PULSE 85; RESP 18; TEMP 98.1
[2024-01-30 07:08] LABS: HEMATOCRIT 23.1 % (36.0-48.0); MEAN CORPUSCULAR HEMOGLOBIN 32.7 pg (28.0-32.0); MEAN CORPUSCULAR HGB CONC 34.7 g/dL (31.0-37.0); MEAN CORPUSCULAR VOLUME 94.3 fL (81.0-99.0); PHOSPHORUS 3.6 mg/dL (2.5-4.9); PLATELET 214 x1000/uL (130-400); RED BLOOD CELL COUNT 2.45 mill/uL (4.2-5.4); RED CELL DISTRIBUTION WIDTH 14.7 % (11.6-14.6); WHITE BLOOD COUNT 7.8 x1000/uL (4.5-11.0)
[2024-01-30 08:00] VITALS: BP 177/86; PULSE 77; RESP 19; TEMP 98.1
[2024-01-30] MEDS: MAGNESIUM 2 G PREMIX 50 ML IV NR (10:47)
[2024-01-30 12:00] VITALS: BP 142/82; PULSE 75; RESP 18; TEMP 96.1
[2024-01-30] MEDS: AMLODIPINE 5MG TABLET PO NR (12:51)
[2024-01-30 16:00] VITALS: BP 112/69; PULSE 75; RESP 19; TEMP 97.7
[2024-01-30 19:09] LABS: ANA IFA Positive (.)
[2024-01-31] MEDS: ACETAMINOPHEN 325MG TABLET PO PRN (06:26)
[2024-01-31 07:33] LABS: HEMATOCRIT 21.8 % (36.0-48.0); HEMOGLOBIN 7.6 g/dL (12.0-16.0); MEAN CORPUSCULAR HEMOGLOBIN 32.7 pg (28.0-32.0); MEAN CORPUSCULAR HGB CONC 34.8 g/dL (31.0-37.0); MEAN CORPUSCULAR VOLUME 94.1 fL (81.0-99.0); PLATELET 178 x1000/uL (130-400); RED BLOOD CELL COUNT 2.32 mill/uL (4.2-5.4); RED CELL DISTRIBUTION WIDTH 15.1 % (11.6-14.6); WHITE BLOOD COUNT 7.3 x1000/uL (4.5-11.0)
[2024-01-31 07:35] LABS: POTASSIUM 4.1 mEq/L (3.5-5.1)
[2024-01-31 08:00] VITALS: BP 148/72; PULSE 81; RESP 18; TEMP 99.8
[2024-01-31] MEDS: AMLODIPINE 10MG TABLET PO SCH (08:27)
[2024-01-31 12:00] VITALS: BP 140/78; PULSE 86; RESP 18; TEMP 98.2
[2024-01-31] MEDS: CYANOCOBALAMIN 1000MCG/ML VIAL IM SCH (14:50)
[2024-01-31 16:00] VITALS: BP 137/81; PULSE 85; RESP 19; TEMP 98.4
[2024-01-31 20:00] VITALS: BP 137/78; PULSE 85; RESP 18; TEMP 98.1
[2024-02-01 00:20] VITALS: BP 161/101; PULSE 81; RESP 20; TEMP 98.4
[2024-02-01] MEDS: ZOLPIDEM TARTRATE 5MG TABLET PO PRN (00:36)
[2024-02-01 04:21] VITALS: BP 158/89; PULSE 64; RESP 20; TEMP 98.1
[2024-02-01 06:29] LABS: POTASSIUM 3.9 mEq/L (3.5-5.1)
[2024-02-01 06:30] LABS: CALCIUM 8.1 mg/dL (8.7-10.4)
[2024-02-01 06:47] LABS: HEMOGLOBIN 7.3 g/dL (12.0-16.0); MEAN CORPUSCULAR HEMOGLOBIN 32.7 pg (28.0-32.0); MEAN CORPUSCULAR HGB CONC 35.2 g/dL (31.0-37.0); PLATELET 168 x1000/uL (130-400); RED BLOOD CELL COUNT 2.22 mill/uL (4.2-5.4); RED CELL DISTRIBUTION WIDTH 14.9 % (11.6-14.6); WHITE BLOOD COUNT 6.6 x1000/uL (4.5-11.0)
[2024-02-01 07:54] LABS: HEMATOCRIT 20.7 % (36.0-48.0)
[2024-02-01 08:00] VITALS: BP 147/78; PULSE 82; RESP 19; TEMP 98.1
[2024-02-01 12:00] VITALS: BP 136/72; PULSE 76; RESP 19; TEMP 98.1
[2024-02-01] MEDS: CEFAZOLIN 2GM/100ML 100 ML IV SCH (15:34)
[2024-02-01 16:00] VITALS: BP 129/77; PULSE 77; RESP 20; TEMP 97.9
[2024-02-01 20:00] VITALS: BP 139/72; PULSE 89; RESP 18; TEMP 99
[2024-02-02] VITALS: BP 140/75; PULSE 90; RESP 18; TEMP 98.8
[2024-02-02 04:00] VITALS: BP 148/82; PULSE 88; RESP 18; TEMP 98.7
[2024-02-02 07:22] LABS: HEMATOCRIT 21.4 % (36.0-48.0); HEMOGLOBIN 7.5 g/dL (12.0-16.0); MEAN CORPUSCULAR HEMOGLOBIN 32.9 pg (28.0-32.0); MEAN CORPUSCULAR VOLUME 94.1 fL (81.0-99.0); PLATELET 168 x1000/uL (130-400); RED BLOOD CELL COUNT 2.28 mill/uL (4.2-5.4); WHITE BLOOD COUNT 7.4 x1000/uL (4.5-11.0)
[2024-02-02 07:42] LABS: CALCIUM 8.2 mg/dL (8.7-10.4); POTASSIUM 3.7 mEq/L (3.5-5.1)
[2024-02-02 08:00] VITALS: BP 143/66; PULSE 80; RESP 18; TEMP 98.1
[2024-02-02 12:00] VITALS: BP 112/49; PULSE 60; RESP 18; TEMP 98.1
[2024-02-02 16:00] VITALS: BP 115/57; PULSE 79; RESP 19; TEMP 98.1
[2024-02-02 20:00] VITALS: BP 126/67; PULSE 89; RESP 19; TEMP 89
[2024-02-02] MEDS: KETOROLAC 15MG/ML VIAL IV PRN (20:44)
[2024-02-03] VITALS: BP 119/74; PULSE 92; RESP 19; TEMP 98.8
[2024-02-03 04:00] VITALS: BP 150/77; PULSE 82; RESP 19; TEMP 98.9
[2024-02-03 08:00] VITALS: BP 146/77; PULSE 85; RESP 19; TEMP 98.1
[2024-02-03 12:00] VITALS: BP 146/78; PULSE 87; RESP 18; TEMP 97.3
[2024-02-03 16:00] VITALS: BP 137/67; PULSE 90; RESP 18; TEMP 97.4
[2024-02-03 20:00] VITALS: BP 132/81; PULSE 97; RESP 18; TEMP 100.8
[2024-02-04] VITALS: BP 163/84; PULSE 86; RESP 18; TEMP 99.1
[2024-02-04 04:00] VITALS: BP 142/75; PULSE 85; RESP 18; TEMP 97.9
[2024-02-04 08:00] VITALS: BP 146/75; PULSE 87; RESP 20; TEMP 98.1
[2024-02-04 12:00] VITALS: BP 145/83; PULSE 78; RESP 20; TEMP 98.1
[2024-02-04] MEDS: POLYETHYLENE GLYCOL 3350 (17GM) 1 DOSE PACK PO SCH (12:15)
[2024-02-04 16:00] VITALS: BP 136/67; PULSE 97; RESP 19; TEMP 98.2
[2024-02-04 20:00] VITALS: BP 127/60; PULSE 86; RESP 19; TEMP 98.8
[2024-02-05] VITALS: BP 134/75; PULSE 91; RESP 19; TEMP 98.1
[2024-02-05 08:00] VITALS: BP 153/70; PULSE 85; RESP 18; TEMP 98.1
[2024-02-05 12:00] VITALS: BP 153/76; PULSE 87; RESP 18; TEMP 97.7
[2024-02-05 16:00] VITALS: BP 121/65; PULSE 94; RESP 17; TEMP 98.4
[2024-02-05 20:00] VITALS: BP 142/78; PULSE 86; RESP 18; TEMP 98.6
[2024-02-05] MEDS: MORPHINE SULFATE 2 MG/ML INJ (NOT FOR IM USE) IV PRN (22:24)
[2024-02-05] MEDS ORDERED: NALOXONE HCL 0.4MG/ML VIAL IV PRN (22:30)
[2024-02-06] VITALS: BP 143/80; PULSE 90; RESP 18; TEMP 98.6
[2024-02-06 06:26] LABS: CHLORIDE 106 mEq/L (98-107); POTASSIUM 3.7 mEq/L (3.5-5.1); SODIUM 138 mEq/L (136-145)
[2024-02-06 06:27] LABS: CALCIUM 8.8 mg/dL (8.7-10.4); CARBON DIOXIDE 26 mEq/L (21-32)
[2024-02-06 06:32] LABS: CREATININE 0.9 mg/dL (0.6-1.0); GLUCOSE 102 mg/dL (70-105); UREA NITROGEN BLOOD 12 mg/dL (9-23)
[2024-02-06 06:44] LABS: EOSINOPHILS % 2.9 % (0.0-5.0); HEMATOCRIT. 23.3 % (36.0-48.0); HEMOGLOBIN. 8.3 g/dL (12.0-16.0); LYMPHOCYTES % 21.5 % (20.0-50.0); MEAN CORPUSCULAR HEMOGLOBIN 33.5 pg (28.0-32.0); MEAN CORPUSCULAR HGB CONC 35.7 g/dL (31.0-37.0); MEAN CORPUSCULAR VOLUME 93.9 fL (81.0-99.0); MEAN PLATELET VOLUME 7.3 fl (7.4-10.4); MONOCYTES % 9.5 % (2.0-8.0); NEUTROPHILS % 65.1 % (40.0-76.0); PLATELET 173 x1000/uL (130-400); RED BLOOD CELL COUNT 2.48 mill/uL (4.2-5.4); WHITE BLOOD COUNT 6.2 x1000/uL (4.5-11.0)
[2024-02-06 08:00] VITALS: BP 137/77; PULSE 87; RESP 19; TEMP 99
[2024-02-06 12:00] VITALS: BP 138/76; PULSE 84; RESP 18; TEMP 97.9
[2024-02-06 16:00] VITALS: BP 122/72; PULSE 77; RESP 19; TEMP 97.2
[2024-02-06 20:00] VITALS: BP 121/70; PULSE 89; RESP 18; TEMP 98.1
[2024-02-07] VITALS: BP 130/74; PULSE 94; RESP 18; TEMP 98.8
[2024-02-07] MEDS: MORPHINE SULFATE 2 MG/ML INJ (NOT FOR IM USE) IV NR (01:34)
[2024-02-07 04:00] VITALS: BP 130/77; PULSE 91; RESP 18; TEMP 97.8
[2024-02-07 08:00] VITALS: BP 129/63; PULSE 86; RESP 17; TEMP 98.6
[2024-02-07 12:00] VITALS: BP 122/67; PULSE 82; RESP 18; TEMP 97.6
[2024-02-07] MEDS: GABAPENTIN 100MG CAPSULE PO SCH (13:15)
[2024-02-07] MEDS: CEFAZOLIN 2GM/100ML 100 ML IV SCH (14:39)
[2024-02-07 16:00] VITALS: BP 136/62; PULSE 73; RESP 19; TEMP 97.3
[2024-02-07 20:00] VITALS: BP 124/72; PULSE 95; RESP 18; TEMP 97.8
[2024-02-08] VITALS: BP 119/84; PULSE 90; RESP 18; TEMP 98.7
[2024-02-08 04:00] VITALS: BP 128/79; PULSE 98; RESP 18; TEMP 97.8
[2024-02-08 08:00] VITALS: BP 142/88; PULSE 91; RESP 18; TEMP 98.4
[2024-02-08 12:00] VITALS: BP 135/65; PULSE 91; RESP 19; TEMP 98.4
[2024-02-08] MEDS: GABAPENTIN 300MG CAPSULE PO SCH (14:53)
[2024-02-08 16:00] VITALS: BP 119/65; PULSE 94; RESP 18; TEMP 98.8
[2024-02-08 20:00] VITALS: BP 120/73; PULSE 95; RESP 18; TEMP 99.3
[2024-02-09] VITALS (11 sets, daily range): BP systolic 113–147; BP diastolic 55–79; PULSE 85–100; RESP 16–20; TEMP 97.3–99.5
[2024-02-09 06:44] LABS: CHLORIDE 106 mEq/L (98-107); POTASSIUM 3.8 mEq/L (3.5-5.1); SODIUM 139 mEq/L (136-145)
[2024-02-09 06:45] LABS: CALCIUM 8.4 mg/dL (8.7-10.4); CARBON DIOXIDE 23 mEq/L (21-32)
[2024-02-09 06:46] LABS: BASOPHILS % 0.8 % (0.0-2.0); DIFFERENTIAL COMMENT 0; LYMPHOCYTES % 24.1 % (20.0-50.0); MEAN CORPUSCULAR HEMOGLOBIN 33.4 pg (28.0-32.0); MEAN CORPUSCULAR HGB CONC 34.7 g/dL (31.0-37.0); MEAN CORPUSCULAR VOLUME 96.2 fL (81.0-99.0); MEAN PLATELET VOLUME 7.3 fl (7.4-10.4); MONOCYTES % 9.9 % (2.0-8.0); NEUTROPHILS % 61.2 % (40.0-76.0); PLATELET 164 x1000/uL (130-400); RED BLOOD CELL COUNT 2.04 mill/uL (4.2-5.4); RED CELL DISTRIBUTION WIDTH 15.3 % (11.6-14.6); WHITE BLOOD COUNT 5.7 x1000/uL (4.5-11.0)
[2024-02-09 06:50] LABS: GLUCOSE 113 mg/dL (70-105); UREA NITROGEN BLOOD 19 mg/dL (9-23)
[2024-02-09 06:52] LABS: PHOSPHORUS 4.1 mg/dL (2.5-4.9)
[2024-02-09 06:59] LABS: HEMOGLOBIN. 6.8 g/dL (12.0-16.0)
[2024-02-09 07:00] LABS: HEMATOCRIT. 19.6 % (36.0-48.0)
[2024-02-09] MEDS: GADOTERATE MEGLUMINE 5 MMOL/10 ML VIAL IV ONE (09:03)
[2024-02-09 16:44] LABS: INR 1.2
[2024-02-09 16:45] LABS: HEMATOCRIT 21.3 % (36.0-48.0); HEMOGLOBIN 7.3 g/dL (12.0-16.0)
[2024-02-09] MEDS: MAGNESIUM 2 G PREMIX 50 ML IV SCH (17:49)
[2024-02-10 04:00] VITALS: BP 149/79; PULSE 88; RESP 19; TEMP 99.9
[2024-02-10 08:00] VITALS: BP 153/78; PULSE 89; RESP 19; TEMP 97.9
[2024-02-10 10:28] LABS: BASOPHILS % 0.7 % (0.0-2.0); EOSINOPHILS % 4.1 % (0.0-5.0); HEMATOCRIT. 23.4 % (36.0-48.0); HEMOGLOBIN. 8.2 g/dL (12.0-16.0); LYMPHOCYTES % 24.2 % (20.0-50.0); MEAN CORPUSCULAR HEMOGLOBIN 33.7 pg (28.0-32.0); MEAN CORPUSCULAR HGB CONC 34.9 g/dL (31.0-37.0); MEAN CORPUSCULAR VOLUME 96.3 fL (81.0-99.0); MEAN PLATELET VOLUME 7.3 fl (7.4-10.4); MONOCYTES % 8.5 % (2.0-8.0); NEUTROPHILS % 62.5 % (40.0-76.0); PLATELET 169 x1000/uL (130-400); RED BLOOD CELL COUNT 2.42 mill/uL (4.2-5.4); RED CELL DISTRIBUTION WIDTH 15.5 % (11.6-14.6); WHITE BLOOD COUNT 5.3 x1000/uL (4.5-11.0)
[2024-02-10 10:30] LABS: CARBON DIOXIDE 23 mEq/L (21-32); CHLORIDE 107 mEq/L (98-107); POTASSIUM 3.5 mEq/L (3.5-5.1); SODIUM 139 mEq/L (136-145)
[2024-02-10 10:31] LABS: CALCIUM 8.4 mg/dL (8.7-10.4)
[2024-02-10 10:35] LABS: GLUCOSE 180 mg/dL (70-105)
[2024-02-10 10:36] LABS: UREA NITROGEN BLOOD 19 mg/dL (9-23)
[2024-02-10 10:38] LABS: PHOSPHORUS 3.7 mg/dL (2.5-4.9)
[2024-02-10 12:00] VITALS: BP 147/72; PULSE 92; RESP 20; TEMP 96.6
[2024-02-10] MEDS: POTASSIUM CHLORIDE 20MEQ TABLET SR PO NR (14:37)
[2024-02-10] MEDS: MAGNESIUM 2 G PREMIX 50 ML IV NR (15:40)
[2024-02-10 16:00] VITALS: BP 116/59; PULSE 87; RESP 20; TEMP 98.7
[2024-02-10 20:00] VITALS: BP 115/60; PULSE 86; RESP 20; TEMP 97.9
[2024-02-11 04:00] VITALS: BP 124/74; PULSE 80; RESP 20; TEMP 97.7
[2024-02-11 08:00] VITALS: BP 143/69; PULSE 78; RESP 18; TEMP 98.1
[2024-02-11 08:19] LABS: BASOPHILS % 0.8 % (0.0-2.0); EOSINOPHILS % 4.7 % (0.0-5.0); HEMATOCRIT. 23.9 % (36.0-48.0); HEMOGLOBIN. 8.1 g/dL (12.0-16.0); LYMPHOCYTES % 26.4 % (20.0-50.0); MEAN CORPUSCULAR HEMOGLOBIN 32.3 pg (28.0-32.0); MEAN CORPUSCULAR HGB CONC 33.8 g/dL (31.0-37.0); MEAN CORPUSCULAR VOLUME 95.6 fL (81.0-99.0); MEAN PLATELET VOLUME 7.5 fl (7.4-10.4); MONOCYTES % 9.8 % (2.0-8.0); NEUTROPHILS % 58.3 % (40.0-76.0); PLATELET 162 x1000/uL (130-400); RED CELL DISTRIBUTION WIDTH 15.4 % (11.6-14.6); WHITE BLOOD COUNT 5.7 x1000/uL (4.5-11.0)
[2024-02-11 08:23] LABS: CALCIUM 8.6 mg/dL (8.7-10.4); CHLORIDE 108 mEq/L (98-107); POTASSIUM 3.7 mEq/L (3.5-5.1); SODIUM 140 mEq/L (136-145)
[2024-02-11 08:24] LABS: CARBON DIOXIDE 23 mEq/L (21-32)
[2024-02-11 08:29] LABS: CREATININE 0.9 mg/dL (0.6-1.0); GLUCOSE 89 mg/dL (70-105); UREA NITROGEN BLOOD 20 mg/dL (9-23)
[2024-02-11 08:32] LABS: PHOSPHORUS 4.3 mg/dL (2.5-4.9)
[2024-02-11 12:00] VITALS: BP 141/70; PULSE 78; RESP 20; TEMP 97.4
[2024-02-11 16:00] VITALS: BP 137/79; PULSE 89; RESP 20; TEMP 98.4
[2024-02-11 20:00] VITALS: BP 114/60; PULSE 92; RESP 18; TEMP 99.3
[2024-02-12] VITALS: BP 118/79; PULSE 89; RESP 18; TEMP 98.9
[2024-02-12 04:00] VITALS: BP 142/73; PULSE 85; RESP 18; TEMP 97.8
[2024-02-12 08:00] VITALS: BP 138/76; PULSE 83; RESP 17; TEMP 98.1
[2024-02-12] MEDS: KETOROLAC 15MG/ML VIAL IV PRN (09:34)
[2024-02-12 12:00] VITALS: BP 115/64; PULSE 81; RESP 19; TEMP 98.1
[2024-02-12 16:00] VITALS: BP 119/67; PULSE 78; RESP 18; TEMP 98.2
[2024-02-12 20:00] VITALS: BP 114/58; PULSE 86; RESP 18; TEMP 99.3
[2024-02-13] VITALS: BP 119/62; PULSE 88; RESP 18; TEMP 98.9
[2024-02-13 04:00] VITALS: BP 120/78; PULSE 79; RESP 18; TEMP 98.7
[2024-02-13 08:00] VITALS: BP 132/70; PULSE 81; RESP 17; TEMP 97.6
[2024-02-13 12:00] VITALS: BP 139/73; PULSE 87; RESP 18; TEMP 97.7
[2024-02-13 16:00] VITALS: BP 117/68; PULSE 82; RESP 19; TEMP 98.1
[2024-02-13 20:00] VITALS: BP 128/70; PULSE 18; RESP 18; TEMP 98.5
[2024-02-14 04:00] VITALS: BP 156/80; PULSE 89; RESP 18; TEMP 97.7
[2024-02-14] MEDS: CEFAZOLIN 2GM/100ML 100 ML IV SCH (06:57)
[2024-02-14 08:00] VITALS: BP 146/68; PULSE 81; RESP 17; TEMP 98.4
[2024-02-14 12:00] VITALS: BP 132/62; PULSE 82; RESP 18; TEMP 98.4
[2024-02-14] MEDS: ACETAMINOPHEN 325MG TABLET PO PRN (15:00)
[2024-02-14 16:00] VITALS: BP 144/74; PULSE 87; RESP 18; TEMP 97.6
[2024-02-14 20:00] VITALS: BP 130/60; RESP 16; TEMP 98.3
[2024-02-15] VITALS: BP 133/70; PULSE 82; RESP 18; TEMP 97.4
[2024-02-15 04:00] VITALS: BP 120/68; PULSE 71; RESP 19; TEMP 97.3
[2024-02-15 08:00] VITALS: BP 153/90; PULSE 81; RESP 20; TEMP 98.2
[2024-02-15 12:00] VITALS: BP 115/61; PULSE 83; RESP 20; TEMP 97.9
[2024-02-15 16:00] VITALS: BP 116/61; PULSE 88; RESP 20; TEMP 97.5
[2024-02-15 20:00] VITALS: BP_SYST 112; BP_SYST 118; BP_DIAS 58; BP_DIAS 76; PULSE 75; PULSE 86; RESP 18; RESP 19; TEMP 97; TEMP 98.8
[2024-02-16] VITALS: BP 126/85; PULSE 77; RESP 19; TEMP 97.9
[2024-02-16 04:00] VITALS: BP_SYST 109; BP_SYST 150; BP_DIAS 72; BP_DIAS 75; PULSE 69; PULSE 71; RESP 18; RESP 20; TEMP 97.1; TEMP 97.8
[2024-02-16 07:27] LABS: CHLORIDE 110 mEq/L (98-107); POTASSIUM 3.9 mEq/L (3.5-5.1); SODIUM 141 mEq/L (136-145)
[2024-02-16 07:28] LABS: CALCIUM 8.6 mg/dL (8.7-10.4); CARBON DIOXIDE 25 mEq/L (21-32)
[2024-02-16 07:33] LABS: CREATININE 0.7 mg/dL (0.6-1.0); GLUCOSE 85 mg/dL (70-105); UREA NITROGEN BLOOD 17 mg/dL (9-23)
[2024-02-16 07:57] LABS: BASOPHILS % 0.5 % (0.0-2.0); EOSINOPHILS % 3.3 % (0.0-5.0); HEMATOCRIT. 23.4 % (36.0-48.0); LYMPHOCYTES % 24.5 % (20.0-50.0); MEAN CORPUSCULAR HEMOGLOBIN 32.9 pg (28.0-32.0); MEAN CORPUSCULAR HGB CONC 33.9 g/dL (31.0-37.0); MEAN CORPUSCULAR VOLUME 96.9 fL (81.0-99.0); MEAN PLATELET VOLUME 7.5 fl (7.4-10.4); MONOCYTES % 8.5 % (2.0-8.0); NEUTROPHILS % 63.2 % (40.0-76.0); PLATELET 155 x1000/uL (130-400); RED BLOOD CELL COUNT 2.42 mill/uL (4.2-5.4); RED CELL DISTRIBUTION WIDTH 15.7 % (11.6-14.6); WHITE BLOOD COUNT 5.5 x1000/uL (4.5-11.0)
[2024-02-16 08:00] VITALS: BP 142/80; PULSE 82; RESP 20; TEMP 98.1
[2024-02-16 10:02] LABS: ERYTHROCYTE SEDIMENTATION RATE > 140 mm/hr (0-30)
[2024-02-16 12:00] VITALS: BP 132/75; PULSE 78; RESP 19; TEMP 97.7
[2024-02-16 16:00] VITALS: BP 121/63; PULSE 82; RESP 20; TEMP 97.5
[2024-02-16 20:00] VITALS: BP 122/68; PULSE 84; RESP 19; TEMP 98.1
[2024-02-17] VITALS: BP 160/84; PULSE 87; RESP 18; TEMP 98.8
[2024-02-17 04:00] VITALS: BP 148/67; PULSE 80; RESP 18; TEMP 98.2
[2024-02-17 08:00] VITALS: BP 153/80; PULSE 77; RESP 16; TEMP 98.4
[2024-02-17 12:00] VITALS: BP 139/66; PULSE 79; RESP 19; TEMP 97.9
[2024-02-17 16:00] VITALS: BP 142/78; PULSE 82; RESP 19; TEMP 97.7
[2024-02-17 20:00] VITALS: BP 144/75; PULSE 83; RESP 18; TEMP 98.4
[2024-02-18] VITALS: BP 138/81; PULSE 85; RESP 19; TEMP 97.5
[2024-02-18 08:00] VITALS: BP 155/90; PULSE 83; RESP 20; TEMP 98.1
[2024-02-18 11:10] VITALS: BP 155/82; PULSE 74
[2024-02-18 12:00] VITALS: BP 159/69; PULSE 79; RESP 20; TEMP 97.9
[2024-02-18 16:00] VITALS: BP 136/71; PULSE 82; RESP 19; TEMP 98.1
[2024-02-18 20:00] VITALS: BP 147/84; PULSE 85; RESP 19; TEMP 98.4
[2024-02-19] VITALS: BP 147/74; PULSE 77; RESP 18; TEMP 97.5
[2024-02-19 06:00] VITALS: BP 159/76; PULSE 74; RESP 18; TEMP 98.1
[2024-02-19 06:48] LABS: BASOPHILS % 0.7 % (0.0-2.0); EOSINOPHILS % 4.1 % (0.0-5.0); HEMOGLOBIN. 8.1 g/dL (12.0-16.0); LYMPHOCYTES % 24.1 % (20.0-50.0); MEAN CORPUSCULAR HEMOGLOBIN 32.9 pg (28.0-32.0); MEAN CORPUSCULAR HGB CONC 33.7 g/dL (31.0-37.0); MEAN CORPUSCULAR VOLUME 97.6 fL (81.0-99.0); MEAN PLATELET VOLUME 7.6 fl (7.4-10.4); MONOCYTES % 9.3 % (2.0-8.0); NEUTROPHILS % 61.8 % (40.0-76.0); PLATELET 153 x1000/uL (130-400); RED BLOOD CELL COUNT 2.46 mill/uL (4.2-5.4); RED CELL DISTRIBUTION WIDTH 15.7 % (11.6-14.6); WHITE BLOOD COUNT 5.1 x1000/uL (4.5-11.0)
[2024-02-19 06:59] LABS: CARBON DIOXIDE 25 mEq/L (21-32); CHLORIDE 107 mEq/L (98-107); POTASSIUM 3.6 mEq/L (3.5-5.1); SODIUM 141 mEq/L (136-145)
[2024-02-19 07:00] LABS: CALCIUM 8.7 mg/dL (8.7-10.4)
[2024-02-19 07:04] LABS: URIC ACID 3.7 mg/dL (3.1-7.8)
[2024-02-19 07:05] LABS: CREATININE 0.7 mg/dL (0.6-1.0); GLUCOSE 88 mg/dL (70-105); UREA NITROGEN BLOOD 17 mg/dL (9-23)
[2024-02-19 08:00] VITALS: BP 157/80; PULSE 74; RESP 20; TEMP 98.1
[2024-02-19] MEDS: DICLOFENAC SODIUM 75MG DR (EC) TABLET PO SCH (08:14)
[2024-02-19 12:00] VITALS: BP 153/82; PULSE 77; RESP 20; TEMP 98.1
[2024-02-19 16:00] VITALS: BP 117/77; PULSE 68; RESP 20; TEMP 98.1
[2024-02-19 20:00] VITALS: BP 138/75; PULSE 75; RESP 20; TEMP 100.4
[2024-02-20 08:00] VITALS: BP 157/83; PULSE 79; RESP 18; TEMP 97.9
[2024-02-20 12:00] VITALS: BP 142/76; PULSE 73; RESP 19; TEMP 97.5
[2024-02-20 13:06] LABS: ANTI-DNA DOUBLE STRANDED QUANT < 1 IU/mL (0-9)
[2024-02-20 16:00] VITALS: BP 128/67; PULSE 76; RESP 18; TEMP 97.7
[2024-02-20 20:00] VITALS: BP 129/65; PULSE 76; RESP 19; TEMP 98.7
[2024-02-21] VITALS: BP 121/74; PULSE 80; RESP 19; TEMP 98.9
[2024-02-21 04:00] VITALS: BP 134/68; PULSE 84; RESP 19; TEMP 97.9
[2024-02-21 08:00] VITALS: BP 145/81; PULSE 76; RESP 18; TEMP 99.5
[2024-02-21 09:12] LABS: COMPLEMENT C3 139 mg/dL (82-167); COMPLEMENT C4 21 mg/dL (12-38)
[2024-02-21] MEDS: PREDNISONE 20MG TABLET PO SCH (10:56)
[2024-02-21 12:00] VITALS: BP 139/72; PULSE 80; RESP 18; TEMP 98.6
[2024-02-21 16:00] VITALS: BP 138/62; PULSE 80; RESP 18; TEMP 98.6
[2024-02-21 23:37] VITALS: BP 167/87; PULSE 75; RESP 19; TEMP 98.4
[2024-02-22 04:00] VITALS: BP 140/86; PULSE 59; RESP 19; TEMP 97.7
[2024-02-22 08:00] VITALS: BP 147/68; PULSE 78; RESP 18; TEMP 97.5
[2024-02-22 12:00] VITALS: BP 146/84; PULSE 75; RESP 18; TEMP 98.6
[2024-02-22 13:07] LABS: ACTIN (SMOOTH MUSCLE) ANTIBODY 7 Units (0-19)
[2024-02-22 16:00] VITALS: BP 184/93; PULSE 78; RESP 18; TEMP 99.2
[2024-02-22] MEDS: CLONIDINE 0.1MG TABLET PO PRN (16:42)
[2024-02-22 20:00] VITALS: BP 147/69; PULSE 74; RESP 20; TEMP 97.7
[2024-02-23] VITALS: BP 137/64; PULSE 67; RESP 16; TEMP 98.1
[2024-02-23 04:00] VITALS: BP 156/72; PULSE 73; RESP 18; TEMP 97.4
[2024-02-23 04:08] LABS: ALDOLASE 2.1 U/L (3.3-10.3); ANGIOTENSION CONVERTING ENZYME 54 U/L (14-82)
[2024-02-23 08:00] VITALS: BP 151/82; PULSE 65; RESP 19; TEMP 97.5
[2024-02-23] MEDS: HYDROXYCHLOROQUINE SULFATE 200MG TABLET PO SCH (09:09)
[2024-02-23] MEDS: AMLODIPINE 5MG TABLET PO SCH (09:10)
[2024-02-23 12:00] VITALS: BP 142/67; PULSE 69; RESP 20; TEMP 97.7
[2024-02-23 16:00] VITALS: BP 153/85; PULSE 77; RESP 20; TEMP 98.8
[2024-02-23 20:00] VITALS: BP 150/72; PULSE 74; RESP 18; TEMP 96.5
[2024-02-24 06:43] LABS: BASOPHILS % 0.4 % (0.0-2.0); EOSINOPHILS % 0.3 % (0.0-5.0); HEMATOCRIT. 24.9 % (36.0-48.0); HEMOGLOBIN. 8.2 g/dL (12.0-16.0); MEAN CORPUSCULAR HEMOGLOBIN 32.8 pg (28.0-32.0); MEAN CORPUSCULAR HGB CONC 33.1 g/dL (31.0-37.0); MEAN CORPUSCULAR VOLUME 99.1 fL (81.0-99.0); MONOCYTES % 6.2 % (2.0-8.0); NEUTROPHILS % 78.1 % (40.0-76.0); PLATELET 157 x1000/uL (130-400); RED BLOOD CELL COUNT 2.51 mill/uL (4.2-5.4); RED CELL DISTRIBUTION WIDTH 15.8 % (11.6-14.6); WHITE BLOOD COUNT 6.5 x1000/uL (4.5-11.0)
[2024-02-24 07:17] LABS: CHLORIDE 108 mEq/L (98-107); POTASSIUM 4.8 mEq/L (3.5-5.1); SODIUM 137 mEq/L (136-145)
[2024-02-24 07:18] LABS: CARBON DIOXIDE 22 mEq/L (21-32)
[2024-02-24 07:19] LABS: CALCIUM 8.5 mg/dL (8.7-10.4)
[2024-02-24 07:23] LABS: CREATININE 0.9 mg/dL (0.6-1.0); GLUCOSE 201 mg/dL (70-105); UREA NITROGEN BLOOD 32 mg/dL (9-23)
[2024-02-24] MEDS ORDERED: LIDOCAINE HCL 1% 10 MG/ML 10ML VIAL ONE (07:29)
[2024-02-24 09:10] LABS: G6PD RBC 2.68 x10E6/uL (3.77-5.28)
[2024-02-24] MEDS ORDERED: METHOTREXATE SODIUM 2 . 5MG TABLET PO SCH ×4 (12:30→23:00)
[2024-02-24] MEDS ORDERED: FOLIC ACID 1MG TABLET PO SCH (12:30)
== END 2024-02-24 11:35 | DRG 710 ==
LOC: ER 22:34 → 5EST 01-17 03:37 → ER 01-17 08:23 → MICUNO 01-18 20:37 → 6EST 01-20 18:00
PROVIDERS: ADMIT Internal Medicine; ATTEND Internal Medicine
PROC: 0SG1071 Fusion of 2 or more Lumbar Vertebral Joints with Autologous Tissue Substitute, Posterior Approach, Posterior Column, Open Approach (ICD-10-PCS; principal; 2024-01-18)
PROC: 0SG3071 Fusion of Lumbosacral Joint with Autologous Tissue Substitute, Posterior Approach, Posterior Column, Open Approach (ICD-10-PCS; 2024-01-18)
PROC: 00NY0ZZ Release Lumbar Spinal Cord, Open Approach (ICD-10-PCS; 2024-01-18)
PROC: 009U3ZZ Drainage of Spinal Canal, Percutaneous Approach (ICD-10-PCS; 2024-01-18)
PROC: 0SB20ZZ Excision of Lumbar Vertebral Disc, Open Approach (ICD-10-PCS; 2024-01-18)
PROC: 0SB40ZZ Excision of Lumbosacral Disc, Open Approach (ICD-10-PCS; 2024-01-18)
PROC: 30233N1 Transfusion of Nonautologous Red Blood Cells into Peripheral Vein, Percutaneous Approach (ICD-10-PCS; 2024-01-19)
PROC: B24BZZ4 Ultrasonography of Heart with Aorta, Transesophageal (ICD-10-PCS; 2024-01-27)
PROC: 02HV33Z Insertion of Infusion Device into Superior Vena Cava, Percutaneous Approach (ICD-10-PCS; 2024-02-24)
PROC: B518ZZA Fluoroscopy of Superior Vena Cava, Guidance (ICD-10-PCS; 2024-02-24)
PROC: B548ZZA Ultrasonography of Superior Vena Cava, Guidance (ICD-10-PCS; 2024-02-24)
DX: A41.01 Sepsis due to Methicillin susceptible Staphylococcus aureus (principal); J96.21 Acute and chronic respiratory failure with hypoxia; N17.0 Acute kidney failure with tubular necrosis; I33.0 Acute and subacute infective endocarditis; G06.2 Extradural and subdural abscess, unspecified; R18.8 Other ascites; G92.8 Other toxic encephalopathy; K68.12 Psoas muscle abscess; D63.1 Anemia in chronic kidney disease; E83.51 Hypocalcemia; G82.20 Paraplegia, unspecified; M46.26 Osteomyelitis of vertebra, lumbar region; E11.22 Type 2 diabetes mellitus with diabetic chronic kidney disease; E11.69 Type 2 diabetes mellitus with other specified complication; K74.60 Unspecified cirrhosis of liver; D53.9 Nutritional anemia, unspecified; M43.17 Spondylolisthesis, lumbosacral region; E83.42 Hypomagnesemia; E87.6 Hypokalemia; N18.1 Chronic kidney disease, stage 1; E78.5 Hyperlipidemia, unspecified; I12.9 Hypertensive chronic kidney disease with stage 1 through stage 4 chronic kidney disease, or unspecified chronic kidney disease; M46.46 Discitis, unspecified, lumbar region; E66.9 Obesity, unspecified; K59.00 Constipation, unspecified; Z59.01 Sheltered homelessness; M48.02 Spinal stenosis, cervical region; M48.061 Spinal stenosis, lumbar region without neurogenic claudication; E87.1 Hypo-osmolality and hyponatremia; G40.909 Epilepsy, unspecified, not intractable, without status epilepticus; E87.5 Hyperkalemia; R16.1 Splenomegaly, not elsewhere classified; G12.21 Amyotrophic lateral sclerosis; I77.82 Antineutrophilic cytoplasmic antibody [ANCA] vasculitis; J96.22 Acute and chronic respiratory failure with hypercapnia; M06.9 Rheumatoid arthritis, unspecified; Z79.1 Long term (current) use of non-steroidal anti-inflammatories (NSAID); Z79.899 Other long term (current) drug therapy; Z74.01 Bed confinement status; Z86.61 Personal history of infections of the central nervous system; Z86.19 Personal history of other infectious and parasitic diseases; Z79.4 Long term (current) use of insulin; Z63.5 Disruption of family by separation and divorce; Z68.31 Body mass index [BMI] 31.0-31.9, adult
CPT/HCPCS: 36415; 36573; 72100; 72131; 72141; 72146; 72148; 72158; 73110; 73560; 76000; 76770; 80048; 80053; 80061; 80202; 80305; 80320; 81003; 82085; 82164; 82550; 82595; 82607; 82728; 82746; 82955; 82962; 83036; 83520; 83540; 83550; 83605; 83735; 84100; 84145; 84439; 84443; 84550; 85014; 85018; 85025; 85027; 85041; 85049; 85384; 85651; 86038; 86060; 86160; 86225; 86256; 86332; 86431; 86592; 86850; 86880; 86900; 86920; 87070; 87075; 87077; 87186; 88304; 88311; 93306; 93312; 93970; 95863; 95925; 95926; 95928; 95929; 97110; 97116; 97161; 97166; 97530; 97535; 99291; A6261; A9577; C1725; C1892; J0360; J0690; J1100; J1170; J1580; J1815; J1885; J2250; J2270; J2405; J2543; J2704; J2710; J3010; J3370; J3420; J3475; J3490; J7030; J7121; J7512; J8610; P9016; Q0162; C1713; G0480

== ENCOUNTER 2024-05-19 13:30 | Inpatient (IN) | payer MEDICAID ==
[~2024-05-19] VITALS: Ht 160 cm; Wt 86.2 kg
[~2024-05-19 13:30] MED LIST changes: -AMLO5TAB88 PO; +CIPR-263 MT; +COR3 MT; +FURO-152 MT; +GABA-532 MT; -NITR100C MT; -POTA10CA83 PO; +POTA10CA93 PO
[2024-05-19] MEDS ORDERED: KETOROLAC 30MG/ML VIAL IV STA (14:02)
[2024-05-19] MEDS: MORPHINE SULFATE 4 MG/ML INJ (FOR IV/IM USE) IV STA (14:22)
[2024-05-19] MEDS: SODIUM CHLORIDE 0.9% 1,000 ML IV ONE (14:23)
[2024-05-19 14:37] LABS: BASOPHILS % 0.4 % (0.0-2.0); DIFFERENTIAL COMMENT 0; EOSINOPHILS % 0.8 % (0.0-5.0); HEMATOCRIT. 23.4 % (36.0-48.0); HEMOGLOBIN. 7.8 g/dL (12.0-16.0); LYMPHOCYTES % 11.7 % (20.0-50.0); MEAN CORPUSCULAR HEMOGLOBIN 34.5 pg (28.0-32.0); MEAN CORPUSCULAR HGB CONC 33.5 g/dL (31.0-37.0); MEAN CORPUSCULAR VOLUME 103.2 fL (81.0-99.0); MEAN PLATELET VOLUME 7.4 fl (7.4-10.4); MONOCYTES % 9.3 % (2.0-8.0); NEUTROPHILS % 77.8 % (40.0-76.0); PLATELET 135 x1000/uL (130-400); RED BLOOD CELL COUNT 2.26 mill/uL (4.2-5.4); RED CELL DISTRIBUTION WIDTH 14.2 % (11.6-14.6); WHITE BLOOD COUNT 8.4 x1000/uL (4.5-11.0)
[2024-05-19 14:40] LABS: D-DIMER 2.72 mg/L FEU (<0.50); INR 1.2; PROTHROMBIN TIME 12.9 sec (9.6-11.0)
[2024-05-19 14:45] LABS: TROPONIN I HIGH SENSITIVITY 6 ng/L (3.0-34)
[2024-05-19 15:07] LABS: CLARITY URINE CLEAR (CLEAR); COLOR URINE YELLOW (YELLOW); GLUCOSE URINE NEGATIVE (NEGATIVE); KETONES URINE NEGATIVE (NEGATIVE); LEUKOCYTE ESTERASE URINE NEGATIVE (NEGATIVE); NITRITE URINE NEGATIVE (NEGATIVE); OCCULT BLOOD URINE 3+ (NEGATIVE); PROTEIN URINE 2+ (NEGATIVE); SPECIFIC GRAVITY URINE 1.012 (1.005-1.030)
[2024-05-19 15:14] LABS: UCG SCREEN NEGATIVE
[2024-05-19 15:28] LABS: SQUAMOUS EPITHELIAL CELL URINE FEW /lpf (RARE/1+)
[2024-05-19 15:29] LABS: RBC URINE 50-100 /hpf (0-2); WBC URINE NONE SEEN /hpf (0-2)
[2024-05-19 15:30] LABS: BACTERIA URINE TRACE
[2024-05-19 15:58] LABS: CHLORIDE 111 mEq/L (98-107); POTASSIUM 4.1 mEq/L (3.5-5.1); SODIUM 138 mEq/L (136-145)
[2024-05-19 15:59] LABS: CALCIUM 8.3 mg/dL (8.7-10.4); CARBON DIOXIDE 20 mEq/L (21-32)
[2024-05-19 16:04] LABS: CREATININE 0.8 mg/dL (0.6-1.0); GLUCOSE 131 mg/dL (70-105); UREA NITROGEN BLOOD 19 mg/dL (9-23)
[2024-05-19] MEDS: KETOROLAC 30MG/ML VIAL IV NR (16:04)
[2024-05-19 16:06] LABS: ALANINE AMINOTRANSFERASE 33 IU/L (10-49); ALBUMIN 3.3 g/dL (3.2-4.8); ASPARTATE AMINOTRANSFERASE 44 IU/L (<34); BILIRUBIN TOTAL 0.5 mg/dL (0.1-1.0); PROTEIN TOTAL 6.6 g/dL (6.0-8.3)
[2024-05-19 16:42] LABS: TROPONIN I HIGH SENSITIVITY 6 ng/L (3.0-34)
[2024-05-19] MEDS: CEFTRIAXONE SODIUM 1G VIAL IM ONE (18:02)
[2024-05-19] MEDS ORDERED: GUAIFENESIN 200MG/10ML SUGAR FREE UDC PO PRN (19:00)
[2024-05-19] MEDS ORDERED: DOCUSATE SODIUM 100MG CAPSULE PO PRN (19:00)
[2024-05-19] MEDS ORDERED: ACETAMINOPHEN 325MG TABLET PO PRN (19:00)
[2024-05-19] MEDS ORDERED: ONDANSETRON HCL 4MG/2ML INJ IV PRN (19:00)
[2024-05-19] MEDS ORDERED: IPRATROPIUM/ALBUTEROL 0.5-3(2.5)MG/3ML NEB HHN PRN (19:00)
[2024-05-19 19:33] LABS: IRON 26 ug/dL (50-170); TRIGLYCERIDE 48 mg/dL (0-150)
[2024-05-19 19:34] LABS: LDL CHOLESTEROL 63 mg/dL (5-100)
[2024-05-19 19:35] LABS: CHOLESTEROL 126 mg/dL (<200); HDL CHOLESTEROL 50 mg/dL (>65)
[2024-05-19 19:36] LABS: TROPONIN I HIGH SENSITIVITY 6 ng/L (3.0-34)
[2024-05-19 19:36] LABS: TOTAL IRON BINDING CAPACITY 255 ug/dl (250-425)
[2024-05-19 19:38] LABS: FOLIC ACID (FOLATE) SERUM > 20.00 ng/mL (>5.38)
[2024-05-19 19:39] LABS: THYROID STIMULATING HORMONE 1.63 uIU/mL (0.55-4.78); VITAMIN B12 SERUM 851 pg/mL (211-911)
[2024-05-19 22:00] VITALS: BP 175/79; PULSE 79; RESP 18; TEMP 36.72516; O2SAT 98
[2024-05-19] MEDS: ACETAMINOPHEN 325MG TABLET PO PRN (22:39)
[2024-05-19] MEDS: CLONIDINE 0.1MG TABLET PO PRN (22:43)
[2024-05-19 23:14] LABS: CREATINE KINASE 57 IU/L (34-145); CREATINE KINASE MB FRACTION < 0.5 ng/mL (0.5-3.6); TROPONIN I HIGH SENSITIVITY 7 ng/L (3.0-34)
[2024-05-20] VITALS (7 sets, daily range): BP systolic 117–175; BP diastolic 48–82; PULSE 65–83; RESP 18–20; TEMP 36.7516–38.50308; O2SAT 95–99
[2024-05-20] MEDS ORDERED: IOHEXOL-350 100 ML BOTTLE ONE (00:46)
[2024-05-20 01:42] LABS: *AMPHETAMINES SCREEN URINE NEGATIVE (NEGATIVE); *BARBITURATES SCREEN URINE NEGATIVE (NEGATIVE); *BENZODIAZEPINES SCREEN URINE NEGATIVE (NEGATIVE); *COCAINE SCREEN URINE NEGATIVE (NEGATIVE)
[2024-05-20 01:43] LABS: CANNABINOID URINE SCREEN NEGATIVE (NEGATIVE); ECSTASY MDMA SCREEN URINE NEGATIVE (NEGATIVE); METHADONE URINE SCREEN NEGATIVE (NEGATIVE); OPIATES URINE SCREEN PRESUMPTIVE POSITIVE (NEGATIVE); PHENCYCLIDINE URINE SCREEN NEGATIVE (NEGATIVE)
[2024-05-20 06:36] LABS: HEMATOCRIT 25.2 % (36.0-48.0); HEMOGLOBIN 8.5 g/dL (12.0-16.0); MEAN CORPUSCULAR HEMOGLOBIN 33.5 pg (28.0-32.0); MEAN CORPUSCULAR HGB CONC 33.8 g/dL (31.0-37.0); MEAN CORPUSCULAR VOLUME 99.1 fL (81.0-99.0); PLATELET 110 x1000/uL (130-400); RED BLOOD CELL COUNT 2.54 mill/uL (4.2-5.4); RED CELL DISTRIBUTION WIDTH 15.5 % (11.6-14.6)
[2024-05-20 07:33] LABS: CHLORIDE 111 mEq/L (98-107); POTASSIUM 3.8 mEq/L (3.5-5.1); SODIUM 141 mEq/L (136-145)
[2024-05-20 07:34] LABS: CALCIUM 8.1 mg/dL (8.7-10.4); CARBON DIOXIDE 23 mEq/L (21-32)
[2024-05-20 07:37] LABS: CREATINE KINASE MB FRACTION < 0.5 ng/mL (0.5-3.6)
[2024-05-20 07:38] LABS: TROPONIN I HIGH SENSITIVITY 8 ng/L (3.0-34)
[2024-05-20 07:39] LABS: CREATININE 0.7 mg/dL (0.6-1.0); GLUCOSE 86 mg/dL (70-105); UREA NITROGEN BLOOD 15 mg/dL (9-23)
[2024-05-20 07:41] LABS: ALANINE AMINOTRANSFERASE 26 IU/L (10-49); ALBUMIN 2.9 g/dL (3.2-4.8); ASPARTATE AMINOTRANSFERASE 29 IU/L (<34); CREATINE KINASE 43 IU/L (34-145); PHOSPHORUS 4.2 mg/dL (2.5-4.9)
[2024-05-20 07:42] LABS: BILIRUBIN TOTAL 0.7 mg/dL (0.1-1.0); PROTEIN TOTAL 6.1 g/dL (6.0-8.3)
[2024-05-20] MEDS: FERROUS SULFATE 325MG TABLET PO SCH (17:57)
[2024-05-20] MEDS: CYANOCOBALAMIN 1000MCG/ML VIAL IM NR (17:57)
[2024-05-21] VITALS: BP 170/80; PULSE 74; RESP 19; TEMP 36.89184; O2SAT 100
[2024-05-21 04:00] VITALS: BP 125/65; PULSE 66; RESP 18; TEMP 36.61404; O2SAT 100
[2024-05-21 06:57] LABS: BASOPHILS % 0.5 % (0.0-2.0); EOSINOPHILS % 2.8 % (0.0-5.0); HEMOGLOBIN. 8.5 g/dL (12.0-16.0); LYMPHOCYTES % 18.3 % (20.0-50.0); MEAN CORPUSCULAR HEMOGLOBIN 33.4 pg (28.0-32.0); MEAN CORPUSCULAR HGB CONC 34.1 g/dL (31.0-37.0); MEAN CORPUSCULAR VOLUME 97.9 fL (81.0-99.0); MEAN PLATELET VOLUME 7.3 fl (7.4-10.4); MONOCYTES % 10.9 % (2.0-8.0); NEUTROPHILS % 67.5 % (40.0-76.0); PLATELET 120 x1000/uL (130-400); RED BLOOD CELL COUNT 2.55 mill/uL (4.2-5.4); RED CELL DISTRIBUTION WIDTH 14.5 % (11.6-14.6); WHITE BLOOD COUNT 5.4 x1000/uL (4.5-11.0)
[2024-05-21 08:00] VITALS: BP 111/43; PULSE 65; RESP 16; TEMP 36.22512; O2SAT 95
[2024-05-21 12:00] VITALS: BP 152/76; PULSE 64; RESP 18; TEMP 36.114; O2SAT 98
[2024-05-21 16:00] VITALS: BP 153/85; PULSE 71; RESP 17; TEMP 36.72516; O2SAT 99
[2024-05-21 20:00] VITALS: BP 144/80; PULSE 81; RESP 19; TEMP 36.89184; O2SAT 100
[2024-05-21] MEDS: LORAZEPAM 0.5MG TABLET PO PRN (23:29)
[2024-05-22] VITALS: BP 155/76; PULSE 75; RESP 19; TEMP 37.11408; O2SAT 100
[2024-05-22 04:00] VITALS: BP 119/57; PULSE 75; RESP 18; TEMP 36.61404; O2SAT 100
[2024-05-22 08:00] VITALS: BP 136/76; PULSE 70; RESP 18; TEMP 36.55848; O2SAT 98
[2024-05-22 12:00] VITALS: BP 103/68; PULSE 72; RESP 18; TEMP 36.61404; O2SAT 98
[2024-05-22 19:21] VITALS: BP 158/85; PULSE 85; RESP 18; TEMP 38.50308; O2SAT 99
[2024-05-22 20:00] VITALS: BP 113/58; PULSE 85; RESP 19; TEMP 37.00296; O2SAT 99
[2024-05-22] MEDS: VANCOMYCIN 1,750 MG in DEXT 5% WATER 500 ML IV NR (21:51)
[2024-05-23] VITALS: BP 123/60; PULSE 78; RESP 19; TEMP 37.11408; O2SAT 100
[2024-05-23 04:00] VITALS: BP 156/67; PULSE 80; RESP 19; TEMP 37.11408; O2SAT 100
[2024-05-23] MEDS: VANCOMYCIN 750MG/150ML (BAXTER) IV SCH (05:10)
[2024-05-23 06:19] LABS: CHLORIDE 110 mEq/L (98-107); POTASSIUM 3.9 mEq/L (3.5-5.1); SODIUM 140 mEq/L (136-145)
[2024-05-23 06:20] LABS: CARBON DIOXIDE 23 mEq/L (21-32)
[2024-05-23 06:21] LABS: BASOPHILS % 0.2 % (0.0-2.0); EOSINOPHILS % 2.3 % (0.0-5.0); HEMOGLOBIN. 8.8 g/dL (12.0-16.0); LYMPHOCYTES % 19.2 % (20.0-50.0); MEAN CORPUSCULAR HGB CONC 33.9 g/dL (31.0-37.0); MEAN CORPUSCULAR VOLUME 97.6 fL (81.0-99.0); MEAN PLATELET VOLUME 7.3 fl (7.4-10.4); MONOCYTES % 12.3 % (2.0-8.0); PLATELET 155 x1000/uL (130-400); RED BLOOD CELL COUNT 2.67 mill/uL (4.2-5.4); RED CELL DISTRIBUTION WIDTH 14.5 % (11.6-14.6); WHITE BLOOD COUNT 7.1 x1000/uL (4.5-11.0)
[2024-05-23 06:25] LABS: CREATININE 0.7 mg/dL (0.6-1.0); GLUCOSE 81 mg/dL (70-105)
[2024-05-23 06:26] LABS: UREA NITROGEN BLOOD 17 mg/dL (9-23)
[2024-05-23 08:00] VITALS: BP 123/59; PULSE 72; RESP 18; TEMP 36.55848; O2SAT 96
[2024-05-23 12:00] VITALS: BP 147/69; PULSE 73; RESP 18; TEMP 36.44736; O2SAT 96
[2024-05-23 16:00] VITALS: BP 185/67; PULSE 90; RESP 18; TEMP 36.50292; O2SAT 96
[2024-05-23 18:00] VITALS: BP 149/65
[2024-05-23] MEDS: CEFTRIAXONE 1GM/50ML 50 ML IV SCH (20:43)
[2024-05-24] VITALS: BP 105/59; PULSE 74; RESP 18; TEMP 37.11408; O2SAT 98
[2024-05-24 03:29] LABS: BASOPHILS % 0.5 % (0.0-2.0); EOSINOPHILS % 1.4 % (0.0-5.0); HEMATOCRIT. 24.9 % (36.0-48.0); HEMOGLOBIN. 8.5 g/dL (12.0-16.0); LYMPHOCYTES % 19.9 % (20.0-50.0); MEAN CORPUSCULAR HEMOGLOBIN 33.3 pg (28.0-32.0); MEAN CORPUSCULAR HGB CONC 34.3 g/dL (31.0-37.0); MEAN CORPUSCULAR VOLUME 97.2 fL (81.0-99.0); MEAN PLATELET VOLUME 7.4 fl (7.4-10.4); MONOCYTES % 10.7 % (2.0-8.0); NEUTROPHILS % 67.5 % (40.0-76.0); PLATELET 154 x1000/uL (130-400); RED BLOOD CELL COUNT 2.56 mill/uL (4.2-5.4); RED CELL DISTRIBUTION WIDTH 13.9 % (11.6-14.6)
[2024-05-24 03:56] LABS: CHLORIDE 108 mEq/L (98-107); POTASSIUM 3.8 mEq/L (3.5-5.1); SODIUM 138 mEq/L (136-145)
[2024-05-24 03:57] LABS: CARBON DIOXIDE 23 mEq/L (21-32)
[2024-05-24 03:58] LABS: CALCIUM 8.1 mg/dL (8.7-10.4)
[2024-05-24 04:00] VITALS: BP 132/69; PULSE 69; RESP 18; TEMP 36.61404; O2SAT 97
[2024-05-24 04:02] LABS: CREATININE 0.8 mg/dL (0.6-1.0)
[2024-05-24 04:03] LABS: UREA NITROGEN BLOOD 18 mg/dL (9-23)
[2024-05-24 04:09] LABS: GLUCOSE 122 mg/dL (70-105)
[2024-05-24 08:00] VITALS: BP 123/66; PULSE 68; RESP 18; TEMP 36.6696; O2SAT 97
[2024-05-24] MEDS: DICLOFENAC SODIUM 75MG DR TABLET PO SCH (11:28)
[2024-05-24] MEDS: PREDNISONE 20MG TABLET PO SCH (11:29)
[2024-05-24] MEDS: HYDROXYCHLOROQUINE SULFATE 200MG TABLET PO SCH (11:29)
[2024-05-24] MEDS: GABAPENTIN 300MG CAPSULE PO SCH (11:29)
[2024-05-24 12:00] VITALS: BP 139/71; PULSE 65; RESP 19; TEMP 36.33624; O2SAT 96
[2024-05-24] MEDS ORDERED: LIDOCAINE HCL 1% 10 MG/ML 10ML VIAL ONE (12:37)
[2024-05-24 16:00] VITALS: BP 146/69; PULSE 75; RESP 20; TEMP 36.55848; O2SAT 96
[2024-05-24] MEDS ORDERED: METHYLPREDNISOLONE ACETATE 40MG/ML VIAL IM NR (18:30)
[2024-05-24] MEDS ORDERED: LIDOCAINE HCL 1% 10 MG/ML 10ML VIAL INJ NR (18:30)
[2024-05-24 20:00] VITALS: BP 135/69; PULSE 68; RESP 20; TEMP 36.3918; O2SAT 98
[2024-05-24] MEDS ORDERED: HYDROXYCHLOROQUINE SULFATE 200MG TABLET PO SCH (23:30)
[2024-05-25] VITALS: BP 147/73; PULSE 60; RESP 19; TEMP 36.33624; O2SAT 97
[2024-05-25] MEDS: BUPROPION HCL 100MG SR TABLET PO SCH (01:01)
[2024-05-25 04:00] VITALS: BP 136/57; PULSE 59; RESP 20; TEMP 36.33624; O2SAT 96
[2024-05-25 07:52] LABS: INR 1.1; PROTHROMBIN TIME 12.1 sec (9.6-11.0)
[2024-05-25 08:00] VITALS: BP 137/61; PULSE 66; RESP 18; TEMP 36.22512; O2SAT 98
[2024-05-25 08:02] LABS: URIC ACID 4.7 mg/dL (3.1-7.8)
[2024-05-25] MEDS: AMLODIPINE 2.5MG TABLET PO SCH (08:42)
[2024-05-25] MEDS: PREGABALIN 75MG CAPSULE PO SCH (08:43)
[2024-05-25] MEDS ORDERED: DICLOFENAC SODIUM 75MG DR TABLET PO SCH (09:00)
[2024-05-25 12:00] VITALS: BP 146/70; PULSE 71; RESP 18; TEMP 36.33624; O2SAT 99
[2024-05-25 16:00] VITALS: BP 137/64; PULSE 64; RESP 18; TEMP 36.78072; O2SAT 97
[2024-05-25 18:58] VITALS: BP 137/64; PULSE 64; TEMP 98.2; O2SAT 97
[2024-05-27 19:06] LABS: ANGIOTENSION CONVERTING ENZYME 65 U/L (14-82)
[2024-05-28 13:11] LABS: ACTIN (SMOOTH MUSCLE) ANTIBODY 13 Units (0-19)
[2024-05-30 19:10] LABS: ANTI-CARDIOLIPIN AB IGA < 9 APL U/mL (0-11); ANTI-CARDIOLIPIN AB IGG < 9 GPL U/mL (0-14); ANTI-CARDIOLIPIN AB IGM < 9 MPL U/mL (0-12)
== END 2024-05-25 19:40 | disposition home or self-care (01) | DRG 346 ==
LOC: ER 13:30 → 5WST 16:54 → EDBEDREQTM 16:55 → EDBEDREQ 16:55 → 7EST 21:50
PROVIDERS: ADMIT Internal Medicine; ATTEND Internal Medicine
PROC: 30233N1 Transfusion of Nonautologous Red Blood Cells into Peripheral Vein, Percutaneous Approach (ICD-10-PCS; principal; 2024-05-19)
PROC: 3E0233Z Introduction of Anti-inflammatory into Muscle, Percutaneous Approach (ICD-10-PCS; 2024-05-24)
PROC: 3E0U33Z Introduction of Anti-inflammatory into Joints, Percutaneous Approach (ICD-10-PCS; 2024-05-24)
PROC: 3E023BZ Introduction of Anesthetic Agent into Muscle, Percutaneous Approach (ICD-10-PCS; 2024-05-24)
PROC: 3E0U3BZ Introduction of Anesthetic Agent into Joints, Percutaneous Approach (ICD-10-PCS; 2024-05-24)
DX: M06.862 Other specified rheumatoid arthritis, left knee (principal); G06.2 Extradural and subdural abscess, unspecified; D69.6 Thrombocytopenia, unspecified; R18.8 Other ascites; M46.26 Osteomyelitis of vertebra, lumbar region; M06.252 Rheumatoid bursitis, left hip; M46.46 Discitis, unspecified, lumbar region; R07.89 Other chest pain; K74.60 Unspecified cirrhosis of liver; B96.20 Unspecified Escherichia coli [E. coli] as the cause of diseases classified elsewhere; D50.9 Iron deficiency anemia, unspecified; G40.909 Epilepsy, unspecified, not intractable, without status epilepticus; D53.9 Nutritional anemia, unspecified; M79.7 Fibromyalgia; I10 Essential (primary) hypertension; E78.00 Pure hypercholesterolemia, unspecified; E66.9 Obesity, unspecified; Y90.9 Presence of alcohol in blood, level not specified; I77.82 Antineutrophilic cytoplasmic antibody [ANCA] vasculitis; R16.1 Splenomegaly, not elsewhere classified; E11.69 Type 2 diabetes mellitus with other specified complication; F10.21 Alcohol dependence, in remission; Z98.1 Arthrodesis status; Z87.440 Personal history of urinary (tract) infections; Z86.61 Personal history of infections of the central nervous system; Z59.00 Homelessness unspecified; Z68.33 Body mass index [BMI] 33.0-33.9, adult
CPT/HCPCS: 36415; 71045; 71275; 73560; 76881; 80048; 80053; 80061; 80202; 80305; 81003; 81025; 82085; 82164; 82270; 82550; 82553; 82607; 82746; 82962; 82977; 83036; 83540; 83550; 83735; 84100; 84145; 84443; 84484; 84550; 85025; 85027; 85379; 85651; 86147; 86850; 86900; 86920; 93005; 93970; 94640; 97162; 97166; 99285; J0696; J1030; J1885; J2270; J3370; J3420; J3490; J7030; J7060; J7512; P9016; Q9967

== ENCOUNTER 2024-07-01 17:27 | Emergency (ER) | payer MEDICAID ==
[~2024-07-01] VITALS: Ht 162.6 cm; Wt 82.0 kg
[~2024-07-01 17:27] MED LIST changes: -CIPR-263 MT; -COR3 PO; -ERGO1250 PO; -FAMO20TA8 PO; -GABA-532 MT; -IBUP-2028 MT; -NAPR-681 PO; -POTA10CA93 PO; -TOPUD PO
[2024-07-01 17:47] VITALS: BP 155/74; PULSE 90; RESP 18; TEMP 101.8; O2SAT 99
[2024-07-01] MEDS: ACETAMINOPHEN 325MG TABLET PO ONE (18:37)
[2024-07-01] MEDS: IBUPROFEN 600MG TABLET PO STA (19:02)
[2024-07-01] MEDS ORDERED: IBUP-2029 MT (20:32)
== END 2024-07-01 22:50 | disposition home or self-care (01) ==
LOC: ER 17:27
DX: M85.80 Other specified disorders of bone density and structure, unspecified site (principal); E78.00 Pure hypercholesterolemia, unspecified; I10 Essential (primary) hypertension; Z79.899 Other long term (current) drug therapy
CPT/HCPCS: 73100; 99284